=== PATIENT | male | born 1965 | race Caucasian/White ===

== ENCOUNTER 2019-01-03 11:20 | Inpatient (IN) | payer SELFPAY ==
[~2019-01-03] VITALS: Ht 160 cm; Wt 59.0 kg
[2019-01-03] MEDS ORDERED: ONDANSETRON PF 4 MG/2 ML VIAL. IV ONE (11:30)
[2019-01-03] MEDS ORDERED: fentaNYL PF VIAL 100 MCG/2 ML VIAL IV ONE ×3 (11:30→14:00)
[2019-01-03] MEDS ORDERED: HYDROmorphone 2 MG/ML VIAL IV ONE (12:00)
--- NOTE | 2019-01-03 12:25 | PHYS DOC ---
Past Medical History Past Medical History: No Pertinent History Past Surgical History: No Surgical History Alcohol Use: Occasionally Drug Use: None Adult General Chief Complaint Chief Complaint: HIP PAIN HPI HPI Patient is a 53-year-old male who presents with complaint of severe right hip pain after slipping on ice and falling onto right hip. Patient denies any head injury and has no head or neck pain. He rates pain in his right hip at a 9 out of 10. He states the pain is worsened with any motion of the hip. Patient denies any significant medical history and takes no medications. Review of Systems Review of Systems Constitutional: Denies fever or chills [] Respiratory: Denies cough or shortness of breath [] Cardiovascular: No additional information not addressed in HPI [] GI: Denies abdominal pain, nausea, vomiting or diarrhea [] Musculoskeletal: Complains of right hip pain [] Integument: Denies rash or skin lesions [] Neurologic: Denies headache, focal weakness or sensory changes [] All other systems were reviewed and found to be within normal limits, except as documented in this note. Current Medications Current Medications Current Medications Medications (Trade) Dose Ordered Sig/Chyna Start Time Stop Time Status Last Admin Dose Admin Fentanyl Citrate (Fentanyl 2ml Vial) 75 mcg 1X ONCE 01/03/19 12:00 01/03/19 12:01 DC 01/03/19 11:45 75 MCG Hydromorphone HCl (Dilaudid) 1 mg 1X ONCE 01/03/19 12:00 01/03/19 12:03 DC 01/03/19 12:01 1 MG Ondansetron HCl (Zofran) 4 mg 1X ONCE 01/03/19 11:30 01/03/19 11:31 DC 01/03/19 11:37 4 MG Allergies Allergies Allergies Coded Allergies Type Severity Reaction Last Updated Verified No Known Drug Allergies 01/03/19 No Physical Exam Physical Exam Constitutional: Well developed, well nourished, in mild distress, non-toxic appearance. [] HENT: Normocephalic, atraumatic, bilateral external ears normal, oropharynx moist, no oral exudates, nose normal. [] Eyes: PERRLA, EOMI, conjunctiva normal, no discharge. [] Neck: Normal range of motion, no tenderness, supple, no stridor. [] Cardiovascular: Regular rate and rhythm [] Lungs & Thorax: Bilateral breath sounds clear to auscultation [] Abdomen: Bowel sounds normal, soft, no tenderness. [] Skin: Warm, dry, no erythema, no rash. [] Extremities: No cyanosis, no clubbing, no edema. Unable to assess range of motion of right hip due to pain. Patient in position of comfort. [] Neurologic: Alert and oriented X 3, no focal deficits noted. [] Current Patient Data Vital Signs Vital Signs Date Time Temp Pulse Resp B/P (MAP) Pulse Ox O2 Delivery O2 Flow Rate FiO2 01/03/19 13:20 77 18 109/57 (74) 97 01/03/19 11:31 Room Air 01/03/19 11:20 98.4 98.4 Lab Values Laboratory Tests Test 01/03/19 12:30 White Blood Count 13.5 x10^3/uL (4.0-11.0) H Red Blood Count 4.65 x10^6/uL (4.30-5.70) Hemoglobin 15.0 g/dL (13.0-17.5) Hematocrit 45.2 % (39.0-53.0) Mean Corpuscular Volume 97 fL (79-100) Mean Corpuscular Hemoglobin 32 pg (25-35) Mean Corpuscular Hemoglobin Concent 33 g/dL (31-37) Red Cell Distribution Width 13.6 % (11.5-14.5) Platelet Count 361 x10^3/uL (140-400) Neutrophils (%) (Auto) 82 % (31-73) H Lymphocytes (%) (Auto) 13 % (24-48) L Monocytes (%) (Auto) 4 % (0-9) Eosinophils (%) (Auto) 1 % (0-3) Basophils (%) (Auto) 1 % (0-3) Neutrophils # (Auto) 11.0 x10^3uL (1.8-7.7) H Lymphocytes # (Auto) 1.8 x10^3/uL (1.0-4.8) Monocytes # (Auto) 0.5 x10^3/uL (0.0-1.1) Eosinophils # (Auto) 0.1 x10^3/uL (0.0-0.7) Basophils # (Auto) 0.1 x10^3/uL (0.0-0.2) Sodium Level 141 mmol/L (136-145) Potassium Level 4.3 mmol/L (3.5-5.1) Chloride Level 103 mmol/L (98-107) Carbon Dioxide Level 28 mmol/L (21-32) Anion Gap 10 (6-14) Blood Urea Nitrogen 10 mg/dL (8-26) Creatinine 0.8 mg/dL (0.7-1.3) Estimated GFR (Cockcroft-Gault) 100.4 BUN/Creatinine Ratio 13 (6-20) Glucose Level 93 mg/dL (70-99) Calcium Level 9.2 mg/dL (8.5-10.1) Total Bilirubin 0.4 mg/dL (0.2-1.0) Aspartate Amino Transferase (AST) 19 U/L (15-37) Alanine Aminotransferase (ALT) 24 U/L (16-63) Alkaline Phosphatase 64 U/L (46-116) Total Protein 7.6 g/dL (6.4-8.2) Albumin 3.9 g/dL (3.4-5.0) Albumin/Globulin Ratio 1.1 (1.0-1.7) Laboratory Tests 01/03/19 12:30 Laboratory Tests 01/03/19 12:30 EKG EKG [] Radiology/Procedures Radiology/Procedures [] Impressions: Right femur, 2 views, 01/03/2019: HISTORY: Fall The patient positioning was suboptimal. There is a fracture of the proximal right femur extending from the intertrochanteric region into the subtrochanteric femur. There is mild medial displacement of the major distal fracture fragment. There is mild anterior angulation at the fracture site. The femoral head is seated within the acetabulum. There are mild degenerative changes at the right hip joint. No distal femoral fracture is identified. IMPRESSION: Mildly displaced proximal right femoral fracture. Electronically signed by: Chau Little MD (01/03/2019 12:53 PM) [facility] Course & Med Decision Making Course & Med Decision Making Pertinent Labs and Imaging studies reviewed. (See chart for details) [] Dragon Disclaimer Dragon Disclaimer This electronic medical record was generated, in whole or in part, using a voice recognition dictation system. Departure Departure Impression: Primary Impression: Closed right hip fracture Disposition: 09 ADMITTED INPATIENT Admitting Physician: Other (Dr. Hunter) Condition: IMPROVED (ERASED) Referrals: UNKNOWN PCP NAME (PCP) Problem Qualifiers Primary Impression: Closed right hip fracture Encounter type: initial encounter Qualified Codes: S72.001A - Fracture of unspecified part of neck of right femur, initial encounter for closed fracture ANA ROBLES Jr., DO Jan 03, 2019 12:25
[2019-01-03 12:45] LABS: BASO # 0.1 x10^3/uL (0.0-0.2); BASO % 1 % (0-3); EOS # 0.1 x10^3/uL (0.0-0.7); EOS % 1 % (0-3); HEMATOCRIT 45.2 % (39.0-53.0); LYMPH # 1.8 x10^3/uL (1.0-4.8); LYMPH % 13 % (24-48); MEAN CORPUSCULAR HEMOGLOBIN 32 pg (25-35); MEAN CORPUSCULAR HGB CONC 33 g/dL (31-37); MEAN CORPUSCULAR VOLUME 97 fL (79-100); MONO # 0.5 x10^3/uL (0.0-1.1); MONO % 4 % (0-9); NEUT % 82 % (31-73); PLATELET COUNT 361 x10^3/uL (140-400); RED BLOOD COUNT 4.65 x10^6/uL (4.30-5.70); RED CELL DISTRIBUTION WIDTH 13.6 % (11.5-14.5); WHITE BLOOD COUNT 13.5 x10^3/uL (4.0-11.0)
--- NOTE | 2019-01-03 12:56 | RAD ---
Right femur, 2 views, 01/03/2019: HISTORY: Fall The patient positioning was suboptimal. There is a fracture of the proximal right femur extending from the intertrochanteric region into the subtrochanteric femur. There is mild medial displacement of the major distal fracture fragment. There is mild anterior angulation at the fracture site. The femoral head is seated within the acetabulum. There are mild degenerative changes at the right hip joint. No distal femoral fracture is identified. IMPRESSION: Mildly displaced proximal right femoral fracture. Electronically signed by: Chau Little MD (01/03/2019 12:53 PM) [facility]
[2019-01-03 12:59] LABS: CALCIUM 9.2 mg/dL (8.5-10.1); CREATININE 0.8 mg/dL (0.7-1.3); GFR 100.4; POTASSIUM 4.3 mmol/L (3.5-5.1)
[2019-01-03 13:05] LABS: ALBUMIN 3.9 g/dL (3.4-5.0); ALBUMIN/GLOBULIN RATIO 1.1 (1.0-1.7); TOTAL BILIRUBIN 0.4 mg/dL (0.2-1.0); TOTAL PROTEIN 7.6 g/dL (6.4-8.2)
[2019-01-03] MEDS ORDERED: fentaNYL PF VIAL 100 MCG/2 ML VIAL IV PRN (13:45)
[2019-01-03] MEDS ORDERED: ONDANSETRON PF 4 MG/2 ML VIAL. IV PRN ×2 (13:45→15:00)
--- NOTE | 2019-01-03 13:52 | PDOC1 ---
History and Physical Date of Admission Date of Admission DATE: 01/03/19 TIME: 13:49 Identification/Chief Complaint Chief Complaint Traumatic fall with right hip fracture Source Source: Patient History of Present Illness History of Present Illness 53 yo M w/ no known PMHx who presents with complaint of severe right hip pain after slipping on ice and falling onto right hip. Patient denies any head injury and has no head or neck pain. He rates pain in his right hip at a 9 out of 10. He states the pain is worsened with any motion of the hip. Found on XR - Mildly displaced proximal right femoral fracture. Patient denies any significant medical history and takes no medications. Current Problem List Problem List Problems Medical Problems: (1) Closed right hip fracture Status: Acute Current Medications Current Medications Current Medications Fentanyl Citrate (Fentanyl 2ml Vial) 75 mcg 1X ONCE IV Last administered on at 11:31; Start 01/03/19 at 11:30; Stop 01/03/19 at 11:31; Status DC Ondansetron HCl (Zofran) 4 mg 1X ONCE IV Last administered on 01/03/19at 11:37 ; Start 01/03/19 at 11:30; Stop 01/03/19 at 11:31; Status DC Fentanyl Citrate (Fentanyl 2ml Vial) 75 mcg 1X ONCE IV Last administered on at 11:45; Start 01/03/19 at 12:00; Stop 01/03/19 at 12:01; Status DC Hydromorphone HCl (Dilaudid) 1 mg 1X ONCE IV Last administered on 01/03/19at 12 :01; Start 01/03/19 at 12:00; Stop 01/03/19 at 12:03; Status DC Fentanyl Citrate (Fentanyl 2ml Vial) 50 mcg 1X ONCE IV ; Start 01/03/19 at 14: 00; Stop 01/03/19 at 14:01 Ondansetron HCl (Zofran) 4 mg PRN Q8HRS PRN IV NAUSEA/VOMITING; Start 01/03/19 at 13:45; Stop 01/04/19 at 13:44 Fentanyl Citrate (Fentanyl 2ml Vial) 50 mcg PRN Q1HR PRN IV PAIN; Start at 13:45; Stop 01/04/19 at 13:44 Sodium Chloride 1,000 ml @ 125 mls/hr Q8H IV ; Start 01/03/19 at 13:39; Stop at 13:38 Allergies Allergies: Coded Allergies: No Known Drug Allergies (Unverified , 01/03/19) Vitals Vitals Vital Signs Date Time Temp Pulse Resp B/P (MAP) Pulse Ox O2 Delivery O2 Flow Rate FiO2 01/03/19 13:20 77 18 109/57 (74) 97 01/03/19 11:31 Room Air 01/03/19 11:20 98.4 98.4 Labs Labs Laboratory Tests Test 01/03/19 12:30 White Blood Count 13.5 x10^3/uL (4.0-11.0) Red Blood Count 4.65 x10^6/uL (4.30-5.70) Hemoglobin 15.0 g/dL (13.0-17.5) Hematocrit 45.2 % (39.0-53.0) Mean Corpuscular Volume 97 fL (79-100) Mean Corpuscular Hemoglobin 32 pg (25-35) Mean Corpuscular Hemoglobin Concent 33 g/dL (31-37) Red Cell Distribution Width 13.6 % (11.5-14.5) Platelet Count 361 x10^3/uL (140-400) Neutrophils (%) (Auto) 82 % (31-73) Lymphocytes (%) (Auto) 13 % (24-48) Monocytes (%) (Auto) 4 % (0-9) Eosinophils (%) (Auto) 1 % (0-3) Basophils (%) (Auto) 1 % (0-3) Neutrophils # (Auto) 11.0 x10^3uL (1.8-7.7) Lymphocytes # (Auto) 1.8 x10^3/uL (1.0-4.8) Monocytes # (Auto) 0.5 x10^3/uL (0.0-1.1) Eosinophils # (Auto) 0.1 x10^3/uL (0.0-0.7) Basophils # (Auto) 0.1 x10^3/uL (0.0-0.2) Sodium Level 141 mmol/L (136-145) Potassium Level 4.3 mmol/L (3.5-5.1) Chloride Level 103 mmol/L (98-107) Carbon Dioxide Level 28 mmol/L (21-32) Anion Gap 10 (6-14) Blood Urea Nitrogen 10 mg/dL (8-26) Creatinine 0.8 mg/dL (0.7-1.3) Estimated GFR (Cockcroft-Gault) 100.4 BUN/Creatinine Ratio 13 (6-20) Glucose Level 93 mg/dL (70-99) Calcium Level 9.2 mg/dL (8.5-10.1) Total Bilirubin 0.4 mg/dL (0.2-1.0) Aspartate Amino Transf (AST/SGOT) 19 U/L (15-37) Alanine Aminotransferase (ALT/SGPT) 24 U/L (16-63) Alkaline Phosphatase 64 U/L (46-116) Total Protein 7.6 g/dL (6.4-8.2) Albumin 3.9 g/dL (3.4-5.0) Albumin/Globulin Ratio 1.1 (1.0-1.7) Laboratory Tests Test 01/03/19 12:30 White Blood Count 13.5 x10^3/uL (4.0-11.0) Red Blood Count 4.65 x10^6/uL (4.30-5.70) Hemoglobin 15.0 g/dL (13.0-17.5) Hematocrit 45.2 % (39.0-53.0) Mean Corpuscular Volume 97 fL (79-100) Mean Corpuscular Hemoglobin 32 pg (25-35) Mean Corpuscular Hemoglobin Concent 33 g/dL (31-37) Red Cell Distribution Width 13.6 % (11.5-14.5) Platelet Count 361 x10^3/uL (140-400) Neutrophils (%) (Auto) 82 % (31-73) Lymphocytes (%) (Auto) 13 % (24-48) Monocytes (%) (Auto) 4 % (0-9) Eosinophils (%) (Auto) 1 % (0-3) Basophils (%) (Auto) 1 % (0-3) Neutrophils # (Auto) 11.0 x10^3uL (1.8-7.7) Lymphocytes # (Auto) 1.8 x10^3/uL (1.0-4.8) Monocytes # (Auto) 0.5 x10^3/uL (0.0-1.1) Eosinophils # (Auto) 0.1 x10^3/uL (0.0-0.7) Basophils # (Auto) 0.1 x10^3/uL (0.0-0.2) Sodium Level 141 mmol/L (136-145) Potassium Level 4.3 mmol/L (3.5-5.1) Chloride Level 103 mmol/L (98-107) Carbon Dioxide Level 28 mmol/L (21-32) Anion Gap 10 (6-14) Blood Urea Nitrogen 10 mg/dL (8-26) Creatinine 0.8 mg/dL (0.7-1.3) Estimated GFR (Cockcroft-Gault) 100.4 BUN/Creatinine Ratio 13 (6-20) Glucose Level 93 mg/dL (70-99) Calcium Level 9.2 mg/dL (8.5-10.1) Total Bilirubin 0.4 mg/dL (0.2-1.0) Aspartate Amino Transf (AST/SGOT) 19 U/L (15-37) Alanine Aminotransferase (ALT/SGPT) 24 U/L (16-63) Alkaline Phosphatase 64 U/L (46-116) Total Protein 7.6 g/dL (6.4-8.2) Albumin 3.9 g/dL (3.4-5.0) Albumin/Globulin Ratio 1.1 (1.0-1.7) Images Images Right hip XR - Mildly displaced proximal right femoral fracture. VTE Prophylaxis Ordered VTE Prophylaxis Devices: Yes VTE Pharmacological Prophylaxi: No Assessment/Plan Assessment/Plan A/P: Right hip fracture - traumatic, ortho consulted. NPO, pain control. Low cardiac risk for low risk surgery based on EKG, no PMHx. No further testing prior to OR. Would still recommend thromboprophylaxis post-op FEN - NPO PPX - SCDs, lovenox post-op FULL CODE Inpatient for traumatic hip fracture, will need rehab likely on D/C, will notify SW will be inpatient likely at least 2 midnights DEBRA ESTEVEZ MD Jan 03, 2019 13:52
[2019-01-03] MEDS: IV RINGERS,LACTATED 1000ML 1,000 ML IV SCH (14:59)
[2019-01-03 15:00] VITALS: BP 101/55
[2019-01-03] MEDS ORDERED: ACETAMINOPHEN 325 MG TABLET. PO PRN (15:00)
[2019-01-03] MEDS ORDERED: HYDROmorphone 2 MG/ML VIAL IV PRN (15:00)
[2019-01-03] MEDS ORDERED: MAGNESIUM HYDROXIDE 2,400 MG/30 ML ORAL.SUSP. PO PRN (15:00)
[2019-01-03] MEDS ORDERED: LIDOCAINE 2% JELLY 6ML IN APPLICATOR. MM ONE (15:30)
--- NOTE | 2019-01-03 15:41 | NUR ---
Pt arrived at 1500, from ER. Transferred by bed. Pt is on left side, states he cannot move leg. on Hip precautions bedrest, npo at midnight. Pt will be having surgery tomorrow AM with Dr. Kerr.
[2019-01-03] MEDS: HYDROmorphone 2 MG/ML VIAL IV PRN ×3 (16:00→22:43)
--- NOTE | 2019-01-03 16:34 | PDOC2 ---
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 He has had hip pain since then. He is unable to walk. He denies hitting his head or loss of consciousness. Past Medical History Past Medical History He had a severe episode of Chloride spotted fever in 2000. He was in the hospital for a month. He was unable to walk initially, and had to catheterize himself. He progressed from a wheelchair, back to crutches and eventually learned to walk again. He denied other hospitalizations or surgeries or illnesses Past Surgical History Past Surgical History: No pertinent history Family History Family History His mother had cancer, I suspect this was breast cancer primary that spread to the lung and brain or possible lung primary Social History Social History He lives alone in an apartment in [place]. 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 He said he has smoked cigarettes since elementary school. He smokes 1 or more packs a day, he said he would prefer to smoke 2 packs a day. He uses alcohol during his one week off a month. He does not currently use recreational drugs, he reports cocaine use remotely 1 pack per day ALCOHOL: occassional Drugs: None Lives: Alone Current Problem List Problem List Problems Medical Problems: (1) Closed right hip fracture Status: Acute Current Medications Current Medications Current Medications Fentanyl Citrate (Fentanyl 2ml Vial) 75 mcg 1X ONCE IV Last administered on at 11:31; Start 01/03/19 at 11:30; Stop 01/03/19 at 11:31; Status DC Ondansetron HCl (Zofran) 4 mg 1X ONCE IV Last administered on 01/03/19at 11:37 ; Start 01/03/19 at 11:30; Stop 01/03/19 at 11:31; Status DC Fentanyl Citrate (Fentanyl 2ml Vial) 75 mcg 1X ONCE IV Last administered on at 11:45; Start 01/03/19 at 12:00; Stop 01/03/19 at 12:01; Status DC Hydromorphone HCl (Dilaudid) 1 mg 1X ONCE IV Last administered on 01/03/19at 12 :01; Start 01/03/19 at 12:00; Stop 01/03/19 at 12:03; Status DC Fentanyl Citrate (Fentanyl 2ml Vial) 50 mcg 1X ONCE IV Last administered on at 14:26; Start 01/03/19 at 14:00; Stop 01/03/19 at 14:01; Status DC Ondansetron HCl (Zofran) 4 mg PRN Q8HRS PRN IV NAUSEA/VOMITING; Start 01/03/19 at 13:45; Stop 01/03/19 at 15:05; Status DC Fentanyl Citrate (Fentanyl 2ml Vial) 50 mcg PRN Q1HR PRN IV PAIN; Start at 13:45; Stop 01/04/19 at 13:44 Sodium Chloride 1,000 ml @ 125 mls/hr Q8H IV ; Start 01/03/19 at 13:39; Stop at 13:38 Ringer's Solution 1,000 ml @ 50 mls/hr Q20H IV ; Start 01/03/19 at 14:59 Ondansetron HCl (Zofran) 4 mg PRN Q6HRS PRN IV NAUSEA/VOMITING; Start 01/03/19 at 15:00 Hydromorphone HCl (Dilaudid) 0.5 mg PRN Q3HRS PRN IV PAIN; Start 01/03/19 at 15 :00 Hydromorphone HCl (Dilaudid) 1 mg PRN Q3HRS PRN IV PAIN; Start 01/03/19 at 15: 00 Acetaminophen/ Hydrocodone Bitart (Lortab 5/325) 1 tab PRN Q4HRS PRN PO MILD PAIN; Start 01/03/19 at 15:00 Acetaminophen (Tylenol) 650 mg PRN Q6HRS PRN PO Headaches, Temp > 101.5F; Start 01/03/19 at 15:00 Senna/Docusate Sodium (Senna Plus) 1 tab BID PO ; Start 01/03/19 at 21:00 Magnesium Hydroxide (Milk Of Magnesia) 2,400 mg PRN Q12HR PRN PO CONSTIPATION; Start 01/03/19 at 15:00 Nicotine (Nicoderm Cq 21mg) 1 patch DAILY TD ; Start 01/03/19 at 15:00 Lidocaine HCl (Glydo (Lidocaine) Jelly) 1 stephen 1X ONCE MM ; Start 01/03/19 at 15 :30; Stop 01/03/19 at 15:32; Status DC Ondansetron HCl (Zofran) 4 mg PRN Q6HRS PRN IV NAUSEA/VOMITING; Start 01/04/19 at 07:00; Stop 01/05/19 at 06:59 Fentanyl Citrate (Fentanyl 2ml Vial) 25 mcg PRN Q5MIN PRN IV MILD PAIN; Start 01/04/19 at 07:00; Stop 01/05/19 at 06:59 Fentanyl Citrate (Fentanyl 2ml Vial) 50 mcg PRN Q5MIN PRN IV MODERATE TO SEVERE PAIN; Start 01/04/19 at 07:00; Stop 01/05/19 at 06:59 Morphine Sulfate (Morphine Sulfate) 1 mg PRN Q10MIN PRN IV SEVERE PAIN; Start 01/04/19 at 07:00; Stop 01/05/19 at 06:59 Ringer's Solution 1,000 ml @ 30 mls/hr Q24H IV ; Start 01/04/19 at 07:00; Stop 01/04/19 at 18:59 Lidocaine HCl (Xylocaine-Mpf 1% 2ml Vial) 2 ml PRN 1X PRN ID IV START; Start at 07:00; Stop 01/05/19 at 06:59 Hydromorphone HCl (Dilaudid) 0.5 mg PRN Q10MIN PRN IV SEV PAIN, Second choice; Start 01/04/19 at 07:00; Stop 01/05/19 at 06:59 Prochlorperazine Edisylate (Compazine) 5 mg PACU PRN PRN IV NAUSEA, MRX1; Start 01/04/19 at 07:00; Stop 01/05/19 at 06:59 Allergies Allergies: Coded Allergies: No Known Drug Allergies (Unverified , 01/03/19) ROS General: No: Chills, Night Sweats, Fatigue, Malaise Eyes: No Blurry vision, No Double vision HEENT: No: Heacaches Respiratory: No: Cough, Pleuritic Pain, Shortness of breath, SOB with excertion Cardiovascular: No Chest Pain Gastrointestinal: No Nausea, No Vomiting, No Diarrhea, No Constipation Genitourinary: No Dysuria, No Hematuria Musculoskeletal: Yes Gait Disturbance, Yes Joint Pain Neurological: No Bowel/Bladder ControlChng, No Headaches, No Numbness/Tingling Physical Exam General: Alert, Cooperative HEENT: Atraumatic, Other (poor dentition, no apparent loose teeth) Lungs: Normal air movement Heart: Regular rate Abdomen: Soft Extremities: No edema, Normal pulses Skin: No significant lesion, Other (skin intact over the fracture) Neuro: Normal speech, Sensation intact, Other (he was able to dorsiflex and plantarflex the foot on the right, with no evidence of sciatic nerve injury) Psych/Mental Status: Mental status NL, Mood NL MUSCULOSKELETAL: Abnormal exam of right (hip as above. The other 3 extremities show no deformity, tenderness, crepitus, instability, malalignment, weakness, or numbness.) Vitals VITALS Vital Signs Date Time Temp Pulse Resp B/P (MAP) Pulse Ox O2 Delivery O2 Flow Rate FiO2 01/03/19 15:00 99.0 71 20 101/55 (70) 96 Room Air 99.0 Labs Labs Laboratory Tests Test 01/03/19 12:30 White Blood Count 13.5 x10^3/uL (4.0-11.0) Red Blood Count 4.65 x10^6/uL (4.30-5.70) Hemoglobin 15.0 g/dL (13.0-17.5) Hematocrit 45.2 % (39.0-53.0) Mean Corpuscular Volume 97 fL (79-100) Mean Corpuscular Hemoglobin 32 pg (25-35) Mean Corpuscular Hemoglobin Concent 33 g/dL (31-37) Red Cell Distribution Width 13.6 % (11.5-14.5) Platelet Count 361 x10^3/uL (140-400) Neutrophils (%) (Auto) 82 % (31-73) Lymphocytes (%) (Auto) 13 % (24-48) Monocytes (%) (Auto) 4 % (0-9) Eosinophils (%) (Auto) 1 % (0-3) Basophils (%) (Auto) 1 % (0-3) Neutrophils # (Auto) 11.0 x10^3uL (1.8-7.7) Lymphocytes # (Auto) 1.8 x10^3/uL (1.0-4.8) Monocytes # (Auto) 0.5 x10^3/uL (0.0-1.1) Eosinophils # (Auto) 0.1 x10^3/uL (0.0-0.7) Basophils # (Auto) 0.1 x10^3/uL (0.0-0.2) Sodium Level 141 mmol/L (136-145) Potassium Level 4.3 mmol/L (3.5-5.1) Chloride Level 103 mmol/L (98-107) Carbon Dioxide Level 28 mmol/L (21-32) Anion Gap 10 (6-14) Blood Urea Nitrogen 10 mg/dL (8-26) Creatinine 0.8 mg/dL (0.7-1.3) Estimated GFR (Cockcroft-Gault) 100.4 BUN/Creatinine Ratio 13 (6-20) Glucose Level 93 mg/dL (70-99) Calcium Level 9.2 mg/dL (8.5-10.1) Total Bilirubin 0.4 mg/dL (0.2-1.0) Aspartate Amino Transf (AST/SGOT) 19 U/L (15-37) Alanine Aminotransferase (ALT/SGPT) 24 U/L (16-63) Alkaline Phosphatase 64 U/L (46-116) Total Protein 7.6 g/dL (6.4-8.2) Albumin 3.9 g/dL (3.4-5.0) Albumin/Globulin Ratio 1.1 (1.0-1.7) Laboratory Tests Test 01/03/19 12:30 White Blood Count 13.5 x10^3/uL (4.0-11.0) Red Blood Count 4.65 x10^6/uL (4.30-5.70) Hemoglobin 15.0 g/dL (13.0-17.5) Hematocrit 45.2 % (39.0-53.0) Mean Corpuscular Volume 97 fL (79-100) Mean Corpuscular Hemoglobin 32 pg (25-35) Mean Corpuscular Hemoglobin Concent 33 g/dL (31-37) Red Cell Distribution Width 13.6 % (11.5-14.5) Platelet Count 361 x10^3/uL (140-400) Neutrophils (%) (Auto) 82 % (31-73) Lymphocytes (%) (Auto) 13 % (24-48) Monocytes (%) (Auto) 4 % (0-9) Eosinophils (%) (Auto) 1 % (0-3) Basophils (%) (Auto) 1 % (0-3) Neutrophils # (Auto) 11.0 x10^3uL (1.8-7.7) Lymphocytes # (Auto) 1.8 x10^3/uL (1.0-4.8) Monocytes # (Auto) 0.5 x10^3/uL (0.0-1.1) Eosinophils # (Auto) 0.1 x10^3/uL (0.0-0.7) Basophils # (Auto) 0.1 x10^3/uL (0.0-0.2) Sodium Level 141 mmol/L (136-145) Potassium Level 4.3 mmol/L (3.5-5.1) Chloride Level 103 mmol/L (98-107) Carbon Dioxide Level 28 mmol/L (21-32) Anion Gap 10 (6-14) Blood Urea Nitrogen 10 mg/dL (8-26) Creatinine 0.8 mg/dL (0.7-1.3) Estimated GFR (Cockcroft-Gault) 100.4 BUN/Creatinine Ratio 13 (6-20) Glucose Level 93 mg/dL (70-99) Calcium Level 9.2 mg/dL (8.5-10.1) Total Bilirubin 0.4 mg/dL (0.2-1.0) Aspartate Amino Transf (AST/SGOT) 19 U/L (15-37) Alanine Aminotransferase (ALT/SGPT) 24 U/L (16-63) Alkaline Phosphatase 64 U/L (46-116) Total Protein 7.6 g/dL (6.4-8.2) Albumin 3.9 g/dL (3.4-5.0) Albumin/Globulin Ratio 1.1 (1.0-1.7) Images Images Report reviewed, images independently reviewed. Right hip, closed comminuted proximal femur fracture, with reverse obliquity, large lateral fragment, and a fracture line enters the piriformis fossa,with possible separate lesser trochanter fragment. AO class A3.2 or more likely A3.3, and also classified as Seinsheimer V. Assessment/Plan Assessment/Plan Right hip, closed comminuted proximal femur fracture, with reverse obliquity, large lateral fragment, and a fracture line enters the piriformis fossa,with possible separate lesser trochanter fragment. AO class A3.2 or more likely A3.3 , and also classified as Seinsheimer V. This is a difficult fracture to manage, and I spoke to him about risks and benefits of treatment. Nonoperative treatment with bedrest is not recommended. I recommended surgical fixation with cables and intramedullary nail. The nonmetallic polymer cables are stronger than metal cables and have less risk of metal debris and less likely to puncture gloves etc. The fracture pattern alone has a high risk of nonunion or malunion, and his long-term smoking raises the risk of infection, nonunion, or other complications. I spoke to her about the potential risks of surgery such as nonunion or malunion, need for further surgery, hardware breakage, blood clots, bleeding, nerve injury, prolonged healing, or other potential surgical or anesthetic complications. I advised him to stop smoking. I will order a nicotine patch to help his tobacco withdrawal symptoms. I spoke to him about how that smoking affects the healing and increases the risks of difficulties. Showed him images from the Internet of broken nails due to nonunions, and of frequent malaligned fractures with this injury pattern. All of his questions about surgery and answered and he desires to proceed. I have ordered the [employer] Supercables and the Samantha intramedullary nail, but the cables will not be available until about 10 PM and so I recommended surgery at 7:30 AM. He may eat today. ANIL OCONNOR MD Jan 03, 2019 16:34
[2019-01-03] MEDS: NICOTINE 21MG PATCH. TD SCH (16:58)
[2019-01-03] MEDS: HYDROcodone/APAP 5/325MG 1 TAB TABLET PO PRN ×2 (16:58→21:17)
[2019-01-03] MEDS: IV NORMAL SALINE 1000ML BAG 1,000 ML IV SCH (17:01)
[2019-01-03 19:00] VITALS: BP 88/55
[2019-01-03] MEDS: SENNOSIDES/DOCUSATE 8.6/50MG TABLET. PO SCH (21:00)
[2019-01-03 22:00] VITALS: BP 97/57
[2019-01-04] VITALS (17 sets, daily range): BP systolic 91–124; BP diastolic 51–72
[2019-01-04] MEDS: HYDROcodone/APAP 5/325MG 1 TAB TABLET PO PRN (01:46)
[2019-01-04] MEDS: IV NORMAL SALINE 1000ML BAG 1,000 ML IV SCH ×2 (01:47→05:39)
[2019-01-04] MEDS: HYDROmorphone 2 MG/ML VIAL IV PRN ×6 (03:08→22:20)
[2019-01-04 03:58] LABS: BASO % 0 % (0-3); EOS # 0.3 x10^3/uL (0.0-0.7); EOS % 4 % (0-3); HEMATOCRIT 38.4 % (39.0-53.0); HEMOGLOBIN 12.8 g/dL (13.0-17.5); LYMPH # 2.7 x10^3/uL (1.0-4.8); LYMPH % 30 % (24-48); MEAN CORPUSCULAR HEMOGLOBIN 33 pg (25-35); MEAN CORPUSCULAR HGB CONC 33 g/dL (31-37); MEAN CORPUSCULAR VOLUME 98 fL (79-100); MONO % 11 % (0-9); NEUT # 4.9 x10^3uL (1.8-7.7); NEUT % 55 % (31-73); PLATELET COUNT 326 x10^3/uL (140-400); RED BLOOD COUNT 3.94 x10^6/uL (4.30-5.70); RED CELL DISTRIBUTION WIDTH 13.8 % (11.5-14.5); WHITE BLOOD COUNT 8.9 x10^3/uL (4.0-11.0)
[2019-01-04 04:17] LABS: CALCIUM 8.4 mg/dL (8.5-10.1); CREATININE 0.9 mg/dL (0.7-1.3); GFR 87.6
[2019-01-04] MEDS ORDERED: DEXAMETHASONE SOD PHOS 20 MG/5 ML VIAL. ONE ×2 (06:56→17:34)
[2019-01-04] MEDS ORDERED: ROCURONIUM 50 MG/5 ML VIAL. ONE ×2 (06:56→16:37)
[2019-01-04] MEDS ORDERED: fentaNYL PF VIAL 100 MCG/2 ML VIAL ONE ×2 (06:56→16:37)
[2019-01-04] MEDS ORDERED: MIDAZOLAM HCL/PF 2 MG/2 ML VIAL. ONE (06:56)
[2019-01-04] MEDS ORDERED: FAMOTIDINE 20 MG/2 ML VIAL ONE (06:56)
[2019-01-04] MEDS ORDERED: PROPOFOL 0 ML IV ONE (06:56)
[2019-01-04] MEDS ORDERED: ONDANSETRON PF 4 MG/2 ML VIAL. ONE (06:56)
[2019-01-04] MEDS ORDERED: LIDOCAINE 2% PF 5 ML VIAL. ONE ×3 (06:56→16:37)
[2019-01-04] MEDS ORDERED: PROCHLORPERAZINE 10 MG/2 ML VIAL. IV PRN (07:00)
[2019-01-04] MEDS ORDERED: HYDROmorphone 2 MG/ML VIAL IV PRN (07:00)
[2019-01-04] MEDS ORDERED: IV RINGERS,LACTATED 1000ML 1,000 ML IV SCH (07:00)
[2019-01-04] MEDS ORDERED: ONDANSETRON PF 4 MG/2 ML VIAL. IV PRN ×2 (07:00→20:45)
[2019-01-04] MEDS ORDERED: MORPHINE SULFATE 4 MG/ML VIAL. IV PRN (07:00)
[2019-01-04] MEDS ORDERED: fentaNYL PF VIAL 100 MCG/2 ML VIAL IV PRN ×3 (07:00→20:45)
[2019-01-04] MEDS ORDERED: LIDOCAINE 1% PF 2 ML VIAL. ID PRN (07:00)
--- NOTE | 2019-01-04 07:25 | EKG ---
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
[2019-01-04] MEDS ORDERED: MORPHINE SULFATE 5 MG, KETOROLAC 30MG VIAL 30 MG, ROPIVacaine 0.5% PF 60 ML, EPINEPHrin... INT ART ONE ×10 (08:00→16:45)
--- NOTE | 2019-01-04 08:01 | PDOC ---
Provider Note Provider Note instruments were not sterile, so case was postponed. Patient was in OR, but not asleep, so case will be delayed until later today. Instruments to be sterilized. ANIL OCONNOR MD Jan 04, 2019 08:01
[2019-01-04] MEDS: SENNOSIDES/DOCUSATE 8.6/50MG TABLET. PO SCH ×2 (09:07→21:00)
[2019-01-04] MEDS: NICOTINE 21MG PATCH. TD SCH (09:07)
--- NOTE | 2019-01-04 09:26 | PDOC ---
PROGRESS NOTES Chief Complaint Chief Complaint Right hip fracture - traumatic, ortho consulted. NPO, pain control traumatic hip fracture, will need rehab likely on D/C, History of Present Illness History of Present Illness pain OK while not moving he doesnt want to take stool softener, he doesnt want to use the bedpan Vitals Vitals Vital Signs Date Time Temp Pulse Resp B/P (MAP) Pulse Ox O2 Delivery O2 Flow Rate FiO2 01/04/19 08:51 16 Room Air 01/04/19 06:42 98.1 68 117/64 100 98.1 Physical Exam General: Alert, Cooperative Heart: Regular rate Abdomen: Soft Extremities: No edema, Normal pulses Skin: No significant lesion, Other (skin intact over the fracture) Labs LABS Laboratory Tests Test 01/03/19 12:30 01/04/19 03:05 White Blood Count 13.5 x10^3/uL (4.0-11.0) 8.9 x10^3/uL (4.0-11.0) Red Blood Count 4.65 x10^6/uL (4.30-5.70) 3.94 x10^6/uL (4.30-5.70) Hemoglobin 15.0 g/dL (13.0-17.5) 12.8 g/dL (13.0-17.5) Hematocrit 45.2 % (39.0-53.0) 38.4 % (39.0-53.0) Mean Corpuscular Volume 97 fL (79-100) 98 fL (79-100) Mean Corpuscular Hemoglobin 32 pg (25-35) 33 pg (25-35) Mean Corpuscular Hemoglobin Concent 33 g/dL (31-37) 33 g/dL (31-37) Red Cell Distribution Width 13.6 % (11.5-14.5) 13.8 % (11.5-14.5) Platelet Count 361 x10^3/uL (140-400) 326 x10^3/uL (140-400) Neutrophils (%) (Auto) 82 % (31-73) 55 % (31-73) Lymphocytes (%) (Auto) 13 % (24-48) 30 % (24-48) Monocytes (%) (Auto) 4 % (0-9) 11 % (0-9) Eosinophils (%) (Auto) 1 % (0-3) 4 % (0-3) Basophils (%) (Auto) 1 % (0-3) 0 % (0-3) Neutrophils # (Auto) 11.0 x10^3uL (1.8-7.7) 4.9 x10^3uL (1.8-7.7) Lymphocytes # (Auto) 1.8 x10^3/uL (1.0-4.8) 2.7 x10^3/uL (1.0-4.8) Monocytes # (Auto) 0.5 x10^3/uL (0.0-1.1) 1.0 x10^3/uL (0.0-1.1) Eosinophils # (Auto) 0.1 x10^3/uL (0.0-0.7) 0.3 x10^3/uL (0.0-0.7) Basophils # (Auto) 0.1 x10^3/uL (0.0-0.2) 0.0 x10^3/uL (0.0-0.2) Sodium Level 141 mmol/L (136-145) 138 mmol/L (136-145) Potassium Level 4.3 mmol/L (3.5-5.1) 4.0 mmol/L (3.5-5.1) Chloride Level 103 mmol/L (98-107) 102 mmol/L (98-107) Carbon Dioxide Level 28 mmol/L (21-32) 27 mmol/L (21-32) Anion Gap 10 (6-14) 9 (6-14) Blood Urea Nitrogen 10 mg/dL (8-26) 13 mg/dL (8-26) Creatinine 0.8 mg/dL (0.7-1.3) 0.9 mg/dL (0.7-1.3) Estimated GFR (Cockcroft-Gault) 100.4 87.6 BUN/Creatinine Ratio 13 (6-20) Glucose Level 93 mg/dL (70-99) 86 mg/dL (70-99) Calcium Level 9.2 mg/dL (8.5-10.1) 8.4 mg/dL (8.5-10.1) Total Bilirubin 0.4 mg/dL (0.2-1.0) Aspartate Amino Transf (AST/SGOT) 19 U/L (15-37) Alanine Aminotransferase (ALT/SGPT) 24 U/L (16-63) Alkaline Phosphatase 64 U/L (46-116) Total Protein 7.6 g/dL (6.4-8.2) Albumin 3.9 g/dL (3.4-5.0) Albumin/Globulin Ratio 1.1 (1.0-1.7) Review of Systems Review of Systems no n.vd. Assessment and Plan Assessmemt and Plan Problems Medical Problems: (1) Closed right hip fracture Status: Acute Comment Review of Relevant I have reviewed the following items anisha (where applicable) has been applied. Labs Laboratory Tests Test 01/03/19 12:30 01/04/19 03:05 White Blood Count 13.5 x10^3/uL (4.0-11.0) 8.9 x10^3/uL (4.0-11.0) Red Blood Count 4.65 x10^6/uL (4.30-5.70) 3.94 x10^6/uL (4.30-5.70) Hemoglobin 15.0 g/dL (13.0-17.5) 12.8 g/dL (13.0-17.5) Hematocrit 45.2 % (39.0-53.0) 38.4 % (39.0-53.0) Mean Corpuscular Volume 97 fL (79-100) 98 fL (79-100) Mean Corpuscular Hemoglobin 32 pg (25-35) 33 pg (25-35) Mean Corpuscular Hemoglobin Concent 33 g/dL (31-37) 33 g/dL (31-37) Red Cell Distribution Width 13.6 % (11.5-14.5) 13.8 % (11.5-14.5) Platelet Count 361 x10^3/uL (140-400) 326 x10^3/uL (140-400) Neutrophils (%) (Auto) 82 % (31-73) 55 % (31-73) Lymphocytes (%) (Auto) 13 % (24-48) 30 % (24-48) Monocytes (%) (Auto) 4 % (0-9) 11 % (0-9) Eosinophils (%) (Auto) 1 % (0-3) 4 % (0-3) Basophils (%) (Auto) 1 % (0-3) 0 % (0-3) Neutrophils # (Auto) 11.0 x10^3uL (1.8-7.7) 4.9 x10^3uL (1.8-7.7) Lymphocytes # (Auto) 1.8 x10^3/uL (1.0-4.8) 2.7 x10^3/uL (1.0-4.8) Monocytes # (Auto) 0.5 x10^3/uL (0.0-1.1) 1.0 x10^3/uL (0.0-1.1) Eosinophils # (Auto) 0.1 x10^3/uL (0.0-0.7) 0.3 x10^3/uL (0.0-0.7) Basophils # (Auto) 0.1 x10^3/uL (0.0-0.2) 0.0 x10^3/uL (0.0-0.2) Sodium Level 141 mmol/L (136-145) 138 mmol/L (136-145) Potassium Level 4.3 mmol/L (3.5-5.1) 4.0 mmol/L (3.5-5.1) Chloride Level 103 mmol/L (98-107) 102 mmol/L (98-107) Carbon Dioxide Level 28 mmol/L (21-32) 27 mmol/L (21-32) Anion Gap 10 (6-14) 9 (6-14) Blood Urea Nitrogen 10 mg/dL (8-26) 13 mg/dL (8-26) Creatinine 0.8 mg/dL (0.7-1.3) 0.9 mg/dL (0.7-1.3) Estimated GFR (Cockcroft-Gault) 100.4 87.6 BUN/Creatinine Ratio 13 (6-20) Glucose Level 93 mg/dL (70-99) 86 mg/dL (70-99) Calcium Level 9.2 mg/dL (8.5-10.1) 8.4 mg/dL (8.5-10.1) Total Bilirubin 0.4 mg/dL (0.2-1.0) Aspartate Amino Transf (AST/SGOT) 19 U/L (15-37) Alanine Aminotransferase (ALT/SGPT) 24 U/L (16-63) Alkaline Phosphatase 64 U/L (46-116) Total Protein 7.6 g/dL (6.4-8.2) Albumin 3.9 g/dL (3.4-5.0) Albumin/Globulin Ratio 1.1 (1.0-1.7) Laboratory Tests Test 01/03/19 12:30 01/04/19 03:05 White Blood Count 13.5 x10^3/uL (4.0-11.0) 8.9 x10^3/uL (4.0-11.0) Red Blood Count 4.65 x10^6/uL (4.30-5.70) 3.94 x10^6/uL (4.30-5.70) Hemoglobin 15.0 g/dL (13.0-17.5) 12.8 g/dL (13.0-17.5) Hematocrit 45.2 % (39.0-53.0) 38.4 % (39.0-53.0) Mean Corpuscular Volume 97 fL (79-100) 98 fL (79-100) Mean Corpuscular Hemoglobin 32 pg (25-35) 33 pg (25-35) Mean Corpuscular Hemoglobin Concent 33 g/dL (31-37) 33 g/dL (31-37) Red Cell Distribution Width 13.6 % (11.5-14.5) 13.8 % (11.5-14.5) Platelet Count 361 x10^3/uL (140-400) 326 x10^3/uL (140-400) Neutrophils (%) (Auto) 82 % (31-73) 55 % (31-73) Lymphocytes (%) (Auto) 13 % (24-48) 30 % (24-48) Monocytes (%) (Auto) 4 % (0-9) 11 % (0-9) Eosinophils (%) (Auto) 1 % (0-3) 4 % (0-3) Basophils (%) (Auto) 1 % (0-3) 0 % (0-3) Neutrophils # (Auto) 11.0 x10^3uL (1.8-7.7) 4.9 x10^3uL (1.8-7.7) Lymphocytes # (Auto) 1.8 x10^3/uL (1.0-4.8) 2.7 x10^3/uL (1.0-4.8) Monocytes # (Auto) 0.5 x10^3/uL (0.0-1.1) 1.0 x10^3/uL (0.0-1.1) Eosinophils # (Auto) 0.1 x10^3/uL (0.0-0.7) 0.3 x10^3/uL (0.0-0.7) Basophils # (Auto) 0.1 x10^3/uL (0.0-0.2) 0.0 x10^3/uL (0.0-0.2) Sodium Level 141 mmol/L (136-145) 138 mmol/L (136-145) Potassium Level 4.3 mmol/L (3.5-5.1) 4.0 mmol/L (3.5-5.1) Chloride Level 103 mmol/L (98-107) 102 mmol/L (98-107) Carbon Dioxide Level 28 mmol/L (21-32) 27 mmol/L (21-32) Anion Gap 10 (6-14) 9 (6-14) Blood Urea Nitrogen 10 mg/dL (8-26) 13 mg/dL (8-26) Creatinine 0.8 mg/dL (0.7-1.3) 0.9 mg/dL (0.7-1.3) Estimated GFR (Cockcroft-Gault) 100.4 87.6 BUN/Creatinine Ratio 13 (6-20) Glucose Level 93 mg/dL (70-99) 86 mg/dL (70-99) Calcium Level 9.2 mg/dL (8.5-10.1) 8.4 mg/dL (8.5-10.1) Total Bilirubin 0.4 mg/dL (0.2-1.0) Aspartate Amino Transf (AST/SGOT) 19 U/L (15-37) Alanine Aminotransferase (ALT/SGPT) 24 U/L (16-63) Alkaline Phosphatase 64 U/L (46-116) Total Protein 7.6 g/dL (6.4-8.2) Albumin 3.9 g/dL (3.4-5.0) Albumin/Globulin Ratio 1.1 (1.0-1.7) Medications Current Medications Fentanyl Citrate (Fentanyl 2ml Vial) 75 mcg 1X ONCE IV Last administered on at 11:31; Start 01/03/19 at 11:30; Stop 01/03/19 at 11:31; Status DC Ondansetron HCl (Zofran) 4 mg 1X ONCE IV Last administered on 01/03/19at 11:37 ; Start 01/03/19 at 11:30; Stop 01/03/19 at 11:31; Status DC Fentanyl Citrate (Fentanyl 2ml Vial) 75 mcg 1X ONCE IV Last administered on at 11:45; Start 01/03/19 at 12:00; Stop 01/03/19 at 12:01; Status DC Hydromorphone HCl (Dilaudid) 1 mg 1X ONCE IV Last administered on 01/03/19at 12 :01; Start 01/03/19 at 12:00; Stop 01/03/19 at 12:03; Status DC Fentanyl Citrate (Fentanyl 2ml Vial) 50 mcg 1X ONCE IV Last administered on at 14:26; Start 01/03/19 at 14:00; Stop 01/03/19 at 14:01; Status DC Ondansetron HCl (Zofran) 4 mg PRN Q8HRS PRN IV NAUSEA/VOMITING; Start 01/03/19 at 13:45; Stop 01/03/19 at 15:05; Status DC Fentanyl Citrate (Fentanyl 2ml Vial) 50 mcg PRN Q1HR PRN IV PAIN; Start at 13:45; Stop 01/04/19 at 13:44 Sodium Chloride 1,000 ml @ 125 mls/hr Q8H IV Last administered on 01/04/19at 01 :47; Start 01/03/19 at 13:39; Stop 01/04/19 at 13:38 Ringer's Solution 1,000 ml @ 50 mls/hr Q20H IV ; Start 01/03/19 at 14:59 Ondansetron HCl (Zofran) 4 mg PRN Q6HRS PRN IV NAUSEA/VOMITING; Start 01/03/19 at 15:00 Hydromorphone HCl (Dilaudid) 0.5 mg PRN Q3HRS PRN IV PAIN; Start 01/03/19 at 15 :00 Hydromorphone HCl (Dilaudid) 1 mg PRN Q3HRS PRN IV PAIN Last administered on at 08:51; Start 01/03/19 at 15:00 Acetaminophen/ Hydrocodone Bitart (Lortab 5/325) 1 tab PRN Q4HRS PRN PO MILD PAIN Last administered on 01/04/19at 01:46; Start 01/03/19 at 15:00 Acetaminophen (Tylenol) 650 mg PRN Q6HRS PRN PO Headaches, Temp > 101.5F; Start 01/03/19 at 15:00 Senna/Docusate Sodium (Senna Plus) 1 tab BID PO Last administered on 01/04/19at 09:07; Start 01/03/19 at 21:00 Magnesium Hydroxide (Milk Of Magnesia) 2,400 mg PRN Q12HR PRN PO CONSTIPATION; Start 01/03/19 at 15:00 Nicotine (Nicoderm Cq 21mg) 1 patch DAILY TD Last administered on 01/04/19at 09: 07; Start 01/03/19 at 15:00 Lidocaine HCl (Glydo (Lidocaine) Jelly) 1 stephen 1X ONCE MM Last administered on 01/03/19at 15:30; Start 01/03/19 at 15:30; Stop 01/03/19 at 15:32; Status DC Ondansetron HCl (Zofran) 4 mg PRN Q6HRS PRN IV NAUSEA/VOMITING; Start 01/04/19 at 07:00; Stop 01/05/19 at 06:59 Fentanyl Citrate (Fentanyl 2ml Vial) 25 mcg PRN Q5MIN PRN IV MILD PAIN; Start 01/04/19 at 07:00; Stop 01/05/19 at 06:59 Fentanyl Citrate (Fentanyl 2ml Vial) 50 mcg PRN Q5MIN PRN IV MODERATE TO SEVERE PAIN; Start 01/04/19 at 07:00; Stop 01/05/19 at 06:59 Morphine Sulfate (Morphine Sulfate) 1 mg PRN Q10MIN PRN IV SEVERE PAIN; Start 01/04/19 at 07:00; Stop 01/05/19 at 06:59 Ringer's Solution 1,000 ml @ 30 mls/hr Q24H IV ; Start 01/04/19 at 07:00; Stop 01/04/19 at 18:59 Lidocaine HCl (Xylocaine-Mpf 1% 2ml Vial) 2 ml PRN 1X PRN ID IV START; Start at 07:00; Stop 01/05/19 at 06:59 Hydromorphone HCl (Dilaudid) 0.5 mg PRN Q10MIN PRN IV SEV PAIN, Second choice; Start 01/04/19 at 07:00; Stop 01/05/19 at 06:59 Prochlorperazine Edisylate (Compazine) 5 mg PACU PRN PRN IV NAUSEA, MRX1; Start 01/04/19 at 07:00; Stop 01/05/19 at 06:59 Cefazolin Sodium/ Dextrose 50 ml @ 100 mls/hr 1X PREOP PRN IV SEE COMMENTS; Start 01/03/19 at 16:00; Stop 01/05/19 at 15:59 Propofol 0 ml @ As Directed STK-MED ONCE IV ; Start 01/04/19 at 06:56; Stop at 06:57; Status DC Dexamethasone Sodium Phosphate (Decadron) 20 mg STK-MED ONCE .ROUTE ; Start at 06:56; Stop 01/04/19 at 06:57; Status DC Famotidine (Pepcid Vial) 20 mg STK-MED ONCE .ROUTE ; Start 01/04/19 at 06:56; Stop 01/04/19 at 06:57; Status DC Lidocaine HCl (Lidocaine Pf 2% Vial) 5 ml STK-MED ONCE .ROUTE ; Start 01/04/19 at 06:56; Stop 01/04/19 at 06:57; Status DC Ondansetron HCl (Zofran) 4 mg STK-MED ONCE .ROUTE ; Start 01/04/19 at 06:56; Stop 01/04/19 at 06:57; Status DC Rocuronium [place] (Zemuron) 50 mg STK-MED ONCE .ROUTE ; Start 01/04/19 at 06:56 ; Stop 01/04/19 at 06:57; Status DC Fentanyl Citrate (Fentanyl 2ml Vial) 100 mcg STK-MED ONCE .ROUTE ; Start at 06:56; Stop 01/04/19 at 06:57; Status DC Midazolam HCl (Versed) 2 mg STK-MED ONCE .ROUTE ; Start 01/04/19 at 06:56; Stop 01/04/19 at 06:58; Status DC Morphine Sulfate 5 mg/Ketorolac Tromethamine 30 mg/Ropivacaine 60 ml/ Epinephrine HCl 0.5 mg/Sodium Chloride 100 ml @ 100 mls/hr 1X ONCE INT ART ; Start 01/04/19 at 08:00; Stop 01/04/19 at 08:59; Status DC Lidocaine HCl (Lidocaine Pf 2% Vial) 5 ml STK-MED ONCE .ROUTE ; Start 01/04/19 at 07:45; Stop 01/04/19 at 07:46; Status DC Vitals/I & O Vital Sign - Last 24 Hours 01/03/19 01/03/19 01/03/19 01/03/19 11:20 11:31 12:20 13:20 Temp 98.4 98.4 Pulse 84 82 77 Resp 18 16 18 18 B/P (MAP) 145/68 (93) 132/60 (84) 109/57 (74) Pulse Ox 99 99 96 97 O2 Delivery Room Air Room Air 01/03/19 01/03/19 01/03/19 01/03/19 14:20 15:00 15:00 16:00 Temp 99.0 99.0 Pulse 89 71 Resp 18 20 B/P (MAP) 111/50 (70) 101/55 (70) Pulse Ox 97 96 96 O2 Delivery Room Air Room Air Room Air 01/03/19 01/03/19 01/03/19 01/03/19 16:58 19:00 19:14 20:00 Temp 97.7 97.7 Pulse 58 Resp 20 B/P (MAP) 88/55 (66) Pulse Ox 100 O2 Delivery Room Air Room Air Room Air Room Air 01/03/19 01/03/19 01/03/19 01/04/19 21:17 22:00 22:43 01:46 Temp 98.2 98.2 Pulse 84 Resp 20 20 20 20 B/P (MAP) 97/57 (70) Pulse Ox 100 96 100 100 O2 Delivery Room Air Room Air Room Air Room Air 01/04/19 01/04/19 01/04/19 01/04/19 02:46 03:00 03:08 03:38 Temp 97.9 97.9 Pulse 66 Resp 20 20 20 18 B/P (MAP) 110/67 (81) Pulse Ox 100 100 100 100 O2 Delivery Room Air Room Air Room Air Room Air 01/04/19 01/04/19 01/04/19 06:11 06:42 08:51 Temp 98.1 98.1 Pulse 68 Resp 18 16 B/P (MAP) 117/64 Pulse Ox 100 100 O2 Delivery Room Air Room Air Room Air Intake and Output 01/03/19 01/03/19 01/04/19 14:59 22:59 06:59 Intake Total 120 ml 0 ml Output Total 600 ml Balance 120 ml -600 ml RUFINO SRIVASTAVA MD Jan 04, 2019 09:26
[2019-01-04] MEDS: IV RINGERS,LACTATED 1000ML 1,000 ML IV SCH (10:59)
--- NOTE | 2019-01-04 13:09 | NUR ---
SS following for discharge planning. SS reviewed pt chart. Pt is a self pay pt from home alone and is currently on room air. 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 No discharge needs noted at this time. SS will continue to follow for pending discharge needs.
[2019-01-04] MEDS ORDERED: PROPOFOL 20 ML IV ONE (16:37)
[2019-01-04] MEDS ORDERED: SUCCINYLCHOLINE 200 MG/10 ML VIAL. ONE (16:37)
[2019-01-04] MEDS ORDERED: DESFLURANE 61 TO 120 MINUTES IH ONE (17:34)
[2019-01-04] MEDS ORDERED: GLYCOPYRROLATE 1 MG/5 ML VIAL. ONE (18:02)
--- NOTE | 2019-01-04 20:28 | PDOC4 ---
Operative Note Operative Note Date of Procedure: January 04, 2019 Pre-Op Diagnosis: Displaced subtrochanteric fracture of right femur, initial encounter for closed fracture S72.21 XA Post-Op Diagnosis: same Procedure: right hip treatment of subtrochanteric femoral fracture with intramedullary implant, with interlocking screws and cerclage, CPT 22203 Surgeon: Anil Kerr MD Anesthesia Type: General EBL: 300 mL Specimens Obtained: none Complications: None Implants: * [place] T2 recon system reconstruction nail R1.5 titanium right 10 x 400 x 125 , T2 recon system lag screw 6.5 x 100, T2 recon system lag screw 6.5 x 95, locking screw fully threaded 5 mm x 50 mm * Kinamed SuperCable Iso-Elastic Cerclage System with 1.5 mm polymer cables and titanium clasp 2 INDICATION FOR PROCEDURE: This patient is 53 years old, and fell on ice while getting out of his truck at work, sustaining a right hip fracture. X-rays show a displaced unstable reverse obliquity subtrochanteric fracture. The patient and I discussed the risks, benefits and alternatives of treatment. The alternative for surgical treatment is bedrest, which I generally do not recommend. I recommended intramedullary nailing, and I talked to him about the potential risks of this, including bleeding, infection, blood clots, malunion, nonunion or other potential surgical or anesthetic complications. All of the questions about surgery were answered, and he desired to proceed. A written consent was obtained. PROCEDURE IN DETAIL: The patient was identified in the preoperative holding area. The correct right hip was marked by me. The patient was taken to the operating room, where the patient was anesthetized by the Department of Anesthesia. Preoperative antibiotics were given intravenously. The HANA table was used and the well leg was placed in a padded lithotomy leg fernández while the foot of the left leg was placed in a traction foot boot. A time-out procedure was performed. The image intensifier was used, and a preliminary reduction performed. All of the images were interpreted intraoperatively by me, and the image intensifier was used throughout the case. The right hip area was prepared in sterile fashion with ChloraPrep solution and a sterile barrier [place] hip drape was used. An incision was made over the proximal femur at the location of the fracture site. Sharp dissection was used through the fascia viridiana and fascia of the vastus lateralis. The vastus lateralis muscle was elevated and deep retractors were placed. The fracture was easily identified. I used the Kinamed SuperCable Iso-Elastic Cerclage System with 1.5 mm polymer cables and titanium clasp. A cable passer was passed over the femur, at the periosteal level with care made not to cerclage soft tissues or neurovascular structures. The 2 tails of the polymer cable were fed into the cable passer, and the passer was able to be removed. I then used the tensioner device to cerclage the fracture. A second cable was placed slightly superior, closer to the lesser trochanter. I did not one place this too far superior, at so as to avoid interference with the placement of the eventual reconstruction screws. An incision was made over the superior aspect of the greater trochanter. A 3.2 mm guide pin was placed at the tip of the greater trochanter, and advanced into the intramedullary canal. A reamer sleeve was used to protect the soft tissues. A small entry reamer was used. A long guide pin was placed down the intramedullary canal and the length was measured. The nail length was chosen based on that measurement. The canal was sequentially reamed for a long nail until intramedullary chatter occurred at 12 mm. The nail diameter , 10 mm, was chosen based on the intramedullary chatter. The chosen nail was attached to the targeting device with the Nail Holding Screw. The nail was placed down the canal on the targeting device, and the guide wire was removed. The previous incision for the cables was used, and the guide system for the recon nail was placed. The lower screw cannula was secured with a guidewire. The upper screw cannula was drilled, and measurements taken off the drill. The upper lag screw was placed with good fixation. The lower cannula guidewire was removed and drilled and measured. The chosen screws were inserted using the guide and advanced until there was a low tip-apex distance, by using sequential checks on the image intensifier. Traction on the HANA table was released. Finally, a 5.0 mm diameter Distal Cross Lock Screw was placed distally near the knee, using a freehand technique and the image intensifier, after predrilling. Satisfactory fracture reduction and hardware position was obtained using image intensifier views in multiple planes. Copious irrigation was used and the fascia was closed with #2 Vicryl. Bovie electrocautery was used for hemostasis. I completed the closure with 2-0 Vicryl and annie. I used a multidrug injection for hemostasis and pain relief which includes ropivacaine, epinephrine , and morphine. A bulky sterile dressing was applied. The patient was gently transferred from the fracture table back to a hospital bed. There were no apparent complications. ANIL KERR MD Jan 04, 2019 20:28
[2019-01-04] MEDS ORDERED: POLYETHYLENE GLYCOL 3350 17 GM PACKET. PO PRN (20:45)
[2019-01-04] MEDS ORDERED: MORPHINE SULFATE 2 MG/ML VIAL. IV PRN (20:45)
[2019-01-04] MEDS ORDERED: oxyCODONE/APAP 5/325 1 TAB TABLET PO PRN (20:45)
[2019-01-04] MEDS ORDERED: CALCIUM CARBONATE 500 MG TAB.CHEW PO PRN (20:45)
[2019-01-04] MEDS ORDERED: DEXTROSE 50% 25 GM / 50ML DISP.SYRIN. IV PRN (20:45)
[2019-01-04] MEDS ORDERED: IV 1/2 NORMAL SALINE 1,000 ML IV SCH (21:00)
[2019-01-04] MEDS: ASPIRIN ENTERIC COATED 325 MG TABLET.DR. PO SCH (21:00)
--- NOTE | 2019-01-04 21:10 | NUR ---
Patient was transported from PACU to the floor via bed. RN performed a head to toe assessment at that time. Patient rated pain a 0/10 and VSS. Orders were received and implemented at that time. RN will continue to monitor.
[2019-01-05] VITALS (8 sets, daily range): BP systolic 87–124; BP diastolic 47–76
[2019-01-05] MEDS: MORPHINE SULFATE 4 MG/ML VIAL. IV PRN (01:23)
[2019-01-05] MEDS: oxyCODONE/APAP 5/325 1 TAB TABLET PO PRN ×5 (04:10→21:08)
[2019-01-05] MEDS ORDERED: MAGNESIUM HYDROXIDE 2,400 MG/30 ML ORAL.SUSP. PO PRN (06:00)
[2019-01-05 06:01] LABS: BASO % 0 % (0-3); EOS % 0 % (0-3); HEMATOCRIT 30.9 % (39.0-53.0); HEMOGLOBIN 10.3 g/dL (13.0-17.5); LYMPH % 9 % (24-48); MEAN CORPUSCULAR HEMOGLOBIN 33 pg (25-35); MEAN CORPUSCULAR HGB CONC 33 g/dL (31-37); MEAN CORPUSCULAR VOLUME 99 fL (79-100); MONO # 0.9 x10^3/uL (0.0-1.1); MONO % 8 % (0-9); NEUT # 9.5 x10^3uL (1.8-7.7); NEUT % 83 % (31-73); PLATELET COUNT 270 x10^3/uL (140-400); RED BLOOD COUNT 3.12 x10^6/uL (4.30-5.70); RED CELL DISTRIBUTION WIDTH 13.8 % (11.5-14.5); WHITE BLOOD COUNT 11.5 x10^3/uL (4.0-11.0)
[2019-01-05 06:09] LABS: CALCIUM 8.2 mg/dL (8.5-10.1); CREATININE 0.9 mg/dL (0.7-1.3); GFR 87.6; POTASSIUM 4.6 mmol/L (3.5-5.1)
--- NOTE | 2019-01-05 08:09 | RAD ---
Right femur, 2 views, 01/04/2018: HISTORY: Postop evaluation There has been interval placement of surgical screws in the right femoral head and neck attached to a long intramedullary maurisio traversing the proximal femoral fracture. The fracture fragments are in good position for healing. There are 2 additional small radiopaque fixation devices along the proximal femoral cortex. There is a horizontally oriented screw related to the distal aspect of the intramedullary maurisio. Surgical skin clips are present laterally. There is no evidence of a retained surgical instrument, needle or radiopaque sponge on these views. IMPRESSION: Satisfactory alignment status post reduction and internal fixation of the proximal femoral fracture. Electronically signed by: Chau Little MD (01/05/2019 8:06 AM) [facility]
[2019-01-05] MEDS ORDERED: CHOLECALCIFEROL (VITAMIN D3) 1,000 UNIT TABLET PO SCH (09:00)
[2019-01-05] MEDS ORDERED: SENNOSIDES/DOCUSATE 8.6/50MG TABLET. PO SCH (09:00)
[2019-01-05] MEDS: MULTIVITAMIN with MINERAL TABLET. PO SCH (09:06)
[2019-01-05] MEDS: ASPIRIN ENTERIC COATED 325 MG TABLET.DR. PO SCH ×2 (09:07→21:07)
[2019-01-05] MEDS: NICOTINE 21MG PATCH. TD SCH (09:07)
[2019-01-05] MEDS: SENNOSIDES/DOCUSATE 8.6/50MG TABLET. PO SCH ×2 (09:07→21:07)
--- NOTE | 2019-01-05 10:36 | PDOC ---
PROGRESS NOTES Subjective Subjective Hip pain much improved after surgery. No complaints. Objective Vital Signs Vital Signs Date Time Temp Pulse Resp B/P (MAP) Pulse Ox O2 Delivery O2 Flow Rate FiO2 01/05/19 09:10 16 Room Air 01/05/19 07:00 98.2 71 109/53 (71) 100 98.2 01/04/19 20:05 8 Physical Exam The thigh is soft and nontender. Dressings are dry. Distal neurovascular function seems intact. Length and alignment appear appropriate. He still has a Burks in and has not been out of bed much. Labs Laboratory Tests Test 01/03/19 12:30 01/03/19 16:45 01/04/19 03:05 01/05/19 05:30 White Blood Count 13.5 x10^3/uL (4.0-11.0) 8.9 x10^3/uL (4.0-11.0) 11.5 x10^3/uL (4.0-11.0) Red Blood Count 4.65 x10^6/uL (4.30-5.70) 3.94 x10^6/uL (4.30-5.70) 3.12 x10^6/uL (4.30-5.70) Hemoglobin 15.0 g/dL (13.0-17.5) 12.8 g/dL (13.0-17.5) 10.3 g/dL (13.0-17.5) Hematocrit 45.2 % (39.0-53.0) 38.4 % (39.0-53.0) 30.9 % (39.0-53.0) Mean Corpuscular Volume 97 fL (79-100) 98 fL (79-100) 99 fL (79-100) Mean Corpuscular Hemoglobin 32 pg (25-35) 33 pg (25-35) 33 pg (25-35) Mean Corpuscular Hemoglobin Concent 33 g/dL (31-37) 33 g/dL (31-37) 33 g/dL (31-37) Red Cell Distribution Width 13.6 % (11.5-14.5) 13.8 % (11.5-14.5) 13.8 % (11.5-14.5) Platelet Count 361 x10^3/uL (140-400) 326 x10^3/uL (140-400) 270 x10^3/uL (140-400) Neutrophils (%) (Auto) 82 % (31-73) 55 % (31-73) 83 % (31-73) Lymphocytes (%) (Auto) 13 % (24-48) 30 % (24-48) 9 % (24-48) Monocytes (%) (Auto) 4 % (0-9) 11 % (0-9) 8 % (0-9) Eosinophils (%) (Auto) 1 % (0-3) 4 % (0-3) 0 % (0-3) Basophils (%) (Auto) 1 % (0-3) 0 % (0-3) 0 % (0-3) Neutrophils # (Auto) 11.0 x10^3uL (1.8-7.7) 4.9 x10^3uL (1.8-7.7) 9.5 x10^3uL (1.8-7.7) Lymphocytes # (Auto) 1.8 x10^3/uL (1.0-4.8) 2.7 x10^3/uL (1.0-4.8) 1.0 x10^3/uL (1.0-4.8) Monocytes # (Auto) 0.5 x10^3/uL (0.0-1.1) 1.0 x10^3/uL (0.0-1.1) 0.9 x10^3/uL (0.0-1.1) Eosinophils # (Auto) 0.1 x10^3/uL (0.0-0.7) 0.3 x10^3/uL (0.0-0.7) 0.0 x10^3/uL (0.0-0.7) Basophils # (Auto) 0.1 x10^3/uL (0.0-0.2) 0.0 x10^3/uL (0.0-0.2) 0.0 x10^3/uL (0.0-0.2) Sodium Level 141 mmol/L (136-145) 138 mmol/L (136-145) 140 mmol/L (136-145) Potassium Level 4.3 mmol/L (3.5-5.1) 4.0 mmol/L (3.5-5.1) 4.6 mmol/L (3.5-5.1) Chloride Level 103 mmol/L (98-107) 102 mmol/L (98-107) 105 mmol/L (98-107) Carbon Dioxide Level 28 mmol/L (21-32) 27 mmol/L (21-32) 29 mmol/L (21-32) Anion Gap 10 (6-14) 9 (6-14) 6 (6-14) Blood Urea Nitrogen 10 mg/dL (8-26) 13 mg/dL (8-26) 10 mg/dL (8-26) Creatinine 0.8 mg/dL (0.7-1.3) 0.9 mg/dL (0.7-1.3) 0.9 mg/dL (0.7-1.3) Estimated GFR (Cockcroft-Gault) 100.4 87.6 87.6 BUN/Creatinine Ratio 13 (6-20) Glucose Level 93 mg/dL (70-99) 86 mg/dL (70-99) 102 mg/dL (70-99) Calcium Level 9.2 mg/dL (8.5-10.1) 8.4 mg/dL (8.5-10.1) 8.2 mg/dL (8.5-10.1) Total Bilirubin 0.4 mg/dL (0.2-1.0) Aspartate Amino Transf (AST/SGOT) 19 U/L (15-37) Alanine Aminotransferase (ALT/SGPT) 24 U/L (16-63) Alkaline Phosphatase 64 U/L (46-116) Total Protein 7.6 g/dL (6.4-8.2) Albumin 3.9 g/dL (3.4-5.0) Albumin/Globulin Ratio 1.1 (1.0-1.7) Nasal Screen MRSA (PCR) Negative (Negative) 25-Hydroxy Vitamin D Total 20.0 ng/mL (30-100) Laboratory Tests Test 01/05/19 05:30 White Blood Count 11.5 x10^3/uL (4.0-11.0) Red Blood Count 3.12 x10^6/uL (4.30-5.70) Hemoglobin 10.3 g/dL (13.0-17.5) Hematocrit 30.9 % (39.0-53.0) Mean Corpuscular Volume 99 fL (79-100) Mean Corpuscular Hemoglobin 33 pg (25-35) Mean Corpuscular Hemoglobin Concent 33 g/dL (31-37) Red Cell Distribution Width 13.8 % (11.5-14.5) Platelet Count 270 x10^3/uL (140-400) Neutrophils (%) (Auto) 83 % (31-73) Lymphocytes (%) (Auto) 9 % (24-48) Monocytes (%) (Auto) 8 % (0-9) Eosinophils (%) (Auto) 0 % (0-3) Basophils (%) (Auto) 0 % (0-3) Neutrophils # (Auto) 9.5 x10^3uL (1.8-7.7) Lymphocytes # (Auto) 1.0 x10^3/uL (1.0-4.8) Monocytes # (Auto) 0.9 x10^3/uL (0.0-1.1) Eosinophils # (Auto) 0.0 x10^3/uL (0.0-0.7) Basophils # (Auto) 0.0 x10^3/uL (0.0-0.2) Sodium Level 140 mmol/L (136-145) Potassium Level 4.6 mmol/L (3.5-5.1) Chloride Level 105 mmol/L (98-107) Carbon Dioxide Level 29 mmol/L (21-32) Anion Gap 6 (6-14) Blood Urea Nitrogen 10 mg/dL (8-26) Creatinine 0.9 mg/dL (0.7-1.3) Estimated GFR (Cockcroft-Gault) 87.6 Glucose Level 102 mg/dL (70-99) Calcium Level 8.2 mg/dL (8.5-10.1) 25-Hydroxy Vitamin D Total 20.0 ng/mL (30-100) Imaging [facility] [address] [facility] [place] [address] IMAGING REPORT Signed PATIENT: ANJALI EVANS ACCOUNT: [id number] : 1965 LOCATION: [address] [place] [address] AGE: 53 SEX: M EXAM STATUS: ADM IN ORD. PHYSICIAN: ANIL OCONNOR MD REASON: postop--(to take to [place]) PROCEDURE: RIGHT FEMUR XRAY Right femur, 2 views, 01/04/2018: HISTORY: Postop evaluation There has been interval placement of surgical screws in the right femoral head and neck attached to a long intramedullary maurisio traversing the proximal femoral fracture. The fracture fragments are in good position for healing. There are 2 additional small radiopaque fixation devices along the proximal femoral cortex. There is a horizontally oriented screw related to the distal aspect of the intramedullary maurisio. Surgical skin clips are present laterally. There is no evidence of a retained surgical instrument, needle or radiopaque sponge on these views. IMPRESSION: Satisfactory alignment status post reduction and internal fixation of the proximal femoral fracture. Electronically signed by: Chau Little MD (01/05/2019 8:06 AM) [facility] DICTATED and SIGNED BY: CHAU LITTLE MD DATE: 01/05/19 0800 Assessment Assessment Postoperative day 1 after right hip subtrochanteric fracture fixation with cerclage and intramedullary nail Plan Plan of Care Discontinue the Burks. He may weight-bear as tolerated. Mobilization. Outpatient DVT prophylaxis with aspirin twice a day and mobilization seems adequate for this relatively young active man with a hip fracture. Probable discharge tomorrow if ok with hospitalist. ANIL OCONNOR MD Jan 05, 2019 10:36
--- NOTE | 2019-01-05 15:24 | NUR ---
RUBA following up with pt dc plan. RUBA met with pt to discuss options. RUBA explained to pt he does not qualify for services or placement due to not having insurance. RUBA informed pt he would have to pay out of pocket for services. Pt verbalized understanding and reported this is not an affordable option. 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 Pt plans to take the [employer] bus back to his home town upon dc. Pt's girlfriend is a nurse and will provide care for him when he returns home. RUBA provided pt with a walker and informed him [facility] can provide a cab voucher to the bus station if he does not have the funding. Pt accepted walker and verbalized understanding. Pt's RN has been notified.
--- NOTE | 2019-01-05 15:49 | PDOC ---
PROGRESS NOTES Chief Complaint Chief Complaint Right hip fracture - traumatic, ortho surg yesterday traumatic hip fracture, improving welll tobacco use disorder vit D deficiency History of Present Illness History of Present Illness pain better, he feels improved, no evnet Vitals Vitals Vital Signs Date Time Temp Pulse Resp B/P (MAP) Pulse Ox O2 Delivery O2 Flow Rate FiO2 01/05/19 13:50 16 Room Air 01/05/19 11:00 98.2 84 124/63 (83) 100 98.2 01/04/19 20:05 8 Physical Exam General: Alert, Cooperative Heart: Regular rate Abdomen: Soft Extremities: No edema, Normal pulses Skin: No significant lesion, Other (skin intact over the fracture) Labs LABS Laboratory Tests Test 01/05/19 05:30 White Blood Count 11.5 x10^3/uL (4.0-11.0) Red Blood Count 3.12 x10^6/uL (4.30-5.70) Hemoglobin 10.3 g/dL (13.0-17.5) Hematocrit 30.9 % (39.0-53.0) Mean Corpuscular Volume 99 fL (79-100) Mean Corpuscular Hemoglobin 33 pg (25-35) Mean Corpuscular Hemoglobin Concent 33 g/dL (31-37) Red Cell Distribution Width 13.8 % (11.5-14.5) Platelet Count 270 x10^3/uL (140-400) Neutrophils (%) (Auto) 83 % (31-73) Lymphocytes (%) (Auto) 9 % (24-48) Monocytes (%) (Auto) 8 % (0-9) Eosinophils (%) (Auto) 0 % (0-3) Basophils (%) (Auto) 0 % (0-3) Neutrophils # (Auto) 9.5 x10^3uL (1.8-7.7) Lymphocytes # (Auto) 1.0 x10^3/uL (1.0-4.8) Monocytes # (Auto) 0.9 x10^3/uL (0.0-1.1) Eosinophils # (Auto) 0.0 x10^3/uL (0.0-0.7) Basophils # (Auto) 0.0 x10^3/uL (0.0-0.2) Sodium Level 140 mmol/L (136-145) Potassium Level 4.6 mmol/L (3.5-5.1) Chloride Level 105 mmol/L (98-107) Carbon Dioxide Level 29 mmol/L (21-32) Anion Gap 6 (6-14) Blood Urea Nitrogen 10 mg/dL (8-26) Creatinine 0.9 mg/dL (0.7-1.3) Estimated GFR (Cockcroft-Gault) 87.6 Glucose Level 102 mg/dL (70-99) Calcium Level 8.2 mg/dL (8.5-10.1) 25-Hydroxy Vitamin D Total 20.0 ng/mL (30-100) Review of Systems Review of Systems no stool, pain better Assessment and Plan Assessmemt and Plan Problems Medical Problems: (1) Closed right hip fracture Status: Acute Comment Review of Relevant I have reviewed the following items anisha (where applicable) has been applied. Labs Laboratory Tests Test 01/03/19 16:45 01/04/19 03:05 01/05/19 05:30 Nasal Screen MRSA (PCR) Negative (Negative) White Blood Count 8.9 x10^3/uL (4.0-11.0) 11.5 x10^3/uL (4.0-11.0) Red Blood Count 3.94 x10^6/uL (4.30-5.70) 3.12 x10^6/uL (4.30-5.70) Hemoglobin 12.8 g/dL (13.0-17.5) 10.3 g/dL (13.0-17.5) Hematocrit 38.4 % (39.0-53.0) 30.9 % (39.0-53.0) Mean Corpuscular Volume 98 fL (79-100) 99 fL (79-100) Mean Corpuscular Hemoglobin 33 pg (25-35) 33 pg (25-35) Mean Corpuscular Hemoglobin Concent 33 g/dL (31-37) 33 g/dL (31-37) Red Cell Distribution Width 13.8 % (11.5-14.5) 13.8 % (11.5-14.5) Platelet Count 326 x10^3/uL (140-400) 270 x10^3/uL (140-400) Neutrophils (%) (Auto) 55 % (31-73) 83 % (31-73) Lymphocytes (%) (Auto) 30 % (24-48) 9 % (24-48) Monocytes (%) (Auto) 11 % (0-9) 8 % (0-9) Eosinophils (%) (Auto) 4 % (0-3) 0 % (0-3) Basophils (%) (Auto) 0 % (0-3) 0 % (0-3) Neutrophils # (Auto) 4.9 x10^3uL (1.8-7.7) 9.5 x10^3uL (1.8-7.7) Lymphocytes # (Auto) 2.7 x10^3/uL (1.0-4.8) 1.0 x10^3/uL (1.0-4.8) Monocytes # (Auto) 1.0 x10^3/uL (0.0-1.1) 0.9 x10^3/uL (0.0-1.1) Eosinophils # (Auto) 0.3 x10^3/uL (0.0-0.7) 0.0 x10^3/uL (0.0-0.7) Basophils # (Auto) 0.0 x10^3/uL (0.0-0.2) 0.0 x10^3/uL (0.0-0.2) Sodium Level 138 mmol/L (136-145) 140 mmol/L (136-145) Potassium Level 4.0 mmol/L (3.5-5.1) 4.6 mmol/L (3.5-5.1) Chloride Level 102 mmol/L (98-107) 105 mmol/L (98-107) Carbon Dioxide Level 27 mmol/L (21-32) 29 mmol/L (21-32) Anion Gap 9 (6-14) 6 (6-14) Blood Urea Nitrogen 13 mg/dL (8-26) 10 mg/dL (8-26) Creatinine 0.9 mg/dL (0.7-1.3) 0.9 mg/dL (0.7-1.3) Estimated GFR (Cockcroft-Gault) 87.6 87.6 Glucose Level 86 mg/dL (70-99) 102 mg/dL (70-99) Calcium Level 8.4 mg/dL (8.5-10.1) 8.2 mg/dL (8.5-10.1) 25-Hydroxy Vitamin D Total 20.0 ng/mL (30-100) Laboratory Tests Test 01/05/19 05:30 White Blood Count 11.5 x10^3/uL (4.0-11.0) Red Blood Count 3.12 x10^6/uL (4.30-5.70) Hemoglobin 10.3 g/dL (13.0-17.5) Hematocrit 30.9 % (39.0-53.0) Mean Corpuscular Volume 99 fL (79-100) Mean Corpuscular Hemoglobin 33 pg (25-35) Mean Corpuscular Hemoglobin Concent 33 g/dL (31-37) Red Cell Distribution Width 13.8 % (11.5-14.5) Platelet Count 270 x10^3/uL (140-400) Neutrophils (%) (Auto) 83 % (31-73) Lymphocytes (%) (Auto) 9 % (24-48) Monocytes (%) (Auto) 8 % (0-9) Eosinophils (%) (Auto) 0 % (0-3) Basophils (%) (Auto) 0 % (0-3) Neutrophils # (Auto) 9.5 x10^3uL (1.8-7.7) Lymphocytes # (Auto) 1.0 x10^3/uL (1.0-4.8) Monocytes # (Auto) 0.9 x10^3/uL (0.0-1.1) Eosinophils # (Auto) 0.0 x10^3/uL (0.0-0.7) Basophils # (Auto) 0.0 x10^3/uL (0.0-0.2) Sodium Level 140 mmol/L (136-145) Potassium Level 4.6 mmol/L (3.5-5.1) Chloride Level 105 mmol/L (98-107) Carbon Dioxide Level 29 mmol/L (21-32) Anion Gap 6 (6-14) Blood Urea Nitrogen 10 mg/dL (8-26) Creatinine 0.9 mg/dL (0.7-1.3) Estimated GFR (Cockcroft-Gault) 87.6 Glucose Level 102 mg/dL (70-99) Calcium Level 8.2 mg/dL (8.5-10.1) 25-Hydroxy Vitamin D Total 20.0 ng/mL (30-100) Medications Current Medications Fentanyl Citrate (Fentanyl 2ml Vial) 75 mcg 1X ONCE IV Last administered on at 11:31; Start 01/03/19 at 11:30; Stop 01/03/19 at 11:31; Status DC Ondansetron HCl (Zofran) 4 mg 1X ONCE IV Last administered on 01/03/19at 11:37 ; Start 01/03/19 at 11:30; Stop 01/03/19 at 11:31; Status DC Fentanyl Citrate (Fentanyl 2ml Vial) 75 mcg 1X ONCE IV Last administered on at 11:45; Start 01/03/19 at 12:00; Stop 01/03/19 at 12:01; Status DC Hydromorphone HCl (Dilaudid) 1 mg 1X ONCE IV Last administered on 01/03/19at 12 :01; Start 01/03/19 at 12:00; Stop 01/03/19 at 12:03; Status DC Fentanyl Citrate (Fentanyl 2ml Vial) 50 mcg 1X ONCE IV Last administered on at 14:26; Start 01/03/19 at 14:00; Stop 01/03/19 at 14:01; Status DC Ondansetron HCl (Zofran) 4 mg PRN Q8HRS PRN IV NAUSEA/VOMITING; Start 01/03/19 at 13:45; Stop 01/03/19 at 15:05; Status DC Fentanyl Citrate (Fentanyl 2ml Vial) 50 mcg PRN Q1HR PRN IV PAIN; Start at 13:45; Stop 01/04/19 at 13:44; Status DC Sodium Chloride 1,000 ml @ 125 mls/hr Q8H IV Last administered on 01/04/19at 01 :47; Start 01/03/19 at 13:39; Stop 01/04/19 at 13:38; Status DC Ringer's Solution 1,000 ml @ 50 mls/hr Q20H IV ; Start 01/03/19 at 14:59; Stop 01/05/19 at 06:22; Status DC Ondansetron HCl (Zofran) 4 mg PRN Q6HRS PRN IV NAUSEA/VOMITING; Start 01/03/19 at 15:00 Hydromorphone HCl (Dilaudid) 0.5 mg PRN Q3HRS PRN IV PAIN LAST CHOICE; Start at 15:00 Hydromorphone HCl (Dilaudid) 1 mg PRN Q3HRS PRN IV PAIN LAST CHOICE Last administered on 01/04/19at 22:20; Start 01/03/19 at 15:00 Acetaminophen/ Hydrocodone Bitart (Lortab 5/325) 1 tab PRN Q4HRS PRN PO MILD PAIN Last administered on 01/04/19at 01:46; Start 01/03/19 at 15:00 Acetaminophen (Tylenol) 650 mg PRN Q6HRS PRN PO Headaches, Temp > 101.5F; Start 01/03/19 at 15:00 Senna/Docusate Sodium (Senna Plus) 1 tab BID PO Last administered on 01/05/19at 09:07; Start 01/03/19 at 21:00 Magnesium Hydroxide (Milk Of Magnesia) 2,400 mg PRN Q12HR PRN PO CONSTIPATION 2ND CHOICE; Start 01/03/19 at 15:00 Nicotine (Nicoderm Cq 21mg) 1 patch DAILY TD Last administered on 01/05/19at 09: 07; Start 01/03/19 at 15:00 Lidocaine HCl (Glydo (Lidocaine) Jelly) 1 stephen 1X ONCE MM Last administered on 01/03/19at 15:30; Start 01/03/19 at 15:30; Stop 01/03/19 at 15:32; Status DC Ondansetron HCl (Zofran) 4 mg PRN Q6HRS PRN IV NAUSEA/VOMITING; Start 01/04/19 at 07:00; Stop 01/05/19 at 06:59; Status DC Fentanyl Citrate (Fentanyl 2ml Vial) 25 mcg PRN Q5MIN PRN IV MILD PAIN; Start 01/04/19 at 07:00; Stop 01/05/19 at 06:59; Status DC Fentanyl Citrate (Fentanyl 2ml Vial) 50 mcg PRN Q5MIN PRN IV MODERATE TO SEVERE PAIN; Start 01/04/19 at 07:00; Stop 01/05/19 at 06:59; Status DC Morphine Sulfate (Morphine Sulfate) 1 mg PRN Q10MIN PRN IV SEVERE PAIN; Start 01/04/19 at 07:00; Stop 01/05/19 at 06:59; Status DC Ringer's Solution 1,000 ml @ 30 mls/hr Q24H IV ; Start 01/04/19 at 07:00; Stop 01/04/19 at 18:59; Status DC Lidocaine HCl (Xylocaine-Mpf 1% 2ml Vial) 2 ml PRN 1X PRN ID IV START; Start at 07:00; Stop 01/05/19 at 06:59; Status DC Hydromorphone HCl (Dilaudid) 0.5 mg PRN Q10MIN PRN IV SEV PAIN, Second choice; Start 01/04/19 at 07:00; Stop 01/05/19 at 06:59; Status DC Prochlorperazine Edisylate (Compazine) 5 mg PACU PRN PRN IV NAUSEA, MRX1; Start 01/04/19 at 07:00; Stop 01/05/19 at 06:59; Status DC Cefazolin Sodium/ Dextrose 50 ml @ 100 mls/hr 1X PREOP PRN IV SEE COMMENTS Last administered on 01/04/19at 17:30; Start 01/03/19 at 16:00; Stop 01/05/19 at 15:59 Propofol 0 ml @ As Directed STK-MED ONCE IV ; Start 01/04/19 at 06:56; Stop at 06:57; Status DC Dexamethasone Sodium Phosphate (Decadron) 20 mg STK-MED ONCE .ROUTE ; Start at 06:56; Stop 01/04/19 at 06:57; Status DC Famotidine (Pepcid Vial) 20 mg STK-MED ONCE .ROUTE ; Start 01/04/19 at 06:56; Stop 01/04/19 at 06:57; Status DC Lidocaine HCl (Lidocaine Pf 2% Vial) 5 ml STK-MED ONCE .ROUTE ; Start 01/04/19 at 06:56; Stop 01/04/19 at 06:57; Status DC Ondansetron HCl (Zofran) 4 mg STK-MED ONCE .ROUTE ; Start 01/04/19 at 06:56; Stop 01/04/19 at 06:57; Status DC Rocuronium Alna (Zemuron) 50 mg STK-MED ONCE .ROUTE ; Start 01/04/19 at 06:56 ; Stop 01/04/19 at 06:57; Status DC Fentanyl Citrate (Fentanyl 2ml Vial) 100 mcg STK-MED ONCE .ROUTE ; Start at 06:56; Stop 01/04/19 at 06:57; Status DC Midazolam HCl (Versed) 2 mg STK-MED ONCE .ROUTE ; Start 01/04/19 at 06:56; Stop 01/04/19 at 06:58; Status DC Morphine Sulfate 5 mg/Ketorolac Tromethamine 30 mg/Ropivacaine 60 ml/ Epinephrine HCl 0.5 mg/Sodium Chloride 100 ml @ 100 mls/hr 1X ONCE INT ART ; Start 01/04/19 at 08:00; Stop 01/04/19 at 08:59; Status Cancel Lidocaine HCl (Lidocaine Pf 2% Vial) 5 ml STK-MED ONCE .ROUTE ; Start 01/04/19 at 07:45; Stop 01/04/19 at 07:46; Status DC Morphine Sulfate 5 mg/Ketorolac Tromethamine 30 mg/Ropivacaine 60 ml/ Epinephrine HCl 0.5 mg/Sodium Chloride 100 ml @ 100 mls/hr 1X ONCE INT ART Last administered on 01/04/19at 18:26; Start 01/04/19 at 16:45; Stop 01/04/19 at 17:44; Status DC Propofol 20 ml @ As Directed STK-MED ONCE IV ; Start 01/04/19 at 16:37; Stop at 16:38; Status DC Lidocaine HCl (Lidocaine Pf 2% Vial) 5 ml STK-MED ONCE .ROUTE ; Start 01/04/19 at 16:37; Stop 01/04/19 at 16:38; Status DC Succinylcholine Chloride (Anectine) 200 mg STK-MED ONCE .ROUTE ; Start 01/04/19 at 16:37; Stop 01/04/19 at 16:38; Status DC Rocuronium Alna (Zemuron) 50 mg STK-MED ONCE .ROUTE ; Start 01/04/19 at 16:37 ; Stop 01/04/19 at 16:38; Status DC Fentanyl Citrate (Fentanyl 2ml Vial) 100 mcg STK-MED ONCE .ROUTE ; Start at 16:37; Stop 01/04/19 at 16:38; Status DC Dexamethasone Sodium Phosphate (Decadron) 20 mg STK-MED ONCE .ROUTE ; Start at 17:34; Stop 01/04/19 at 17:35; Status DC Desflurane (Suprane) 60 ml STK-MED ONCE IH ; Start 01/04/19 at 17:34; Stop 01/04 at 17:35; Status DC Glycopyrrolate (Robinul) 1 mg STK-MED ONCE .ROUTE ; Start 01/04/19 at 18:02; Stop 01/04/19 at 18:03; Status DC Cefazolin Sodium/ Dextrose 50 ml @ As Directed STK-MED ONCE IV ; Start 01/04/19 at 19:20; Stop 01/04/19 at 19:21; Status DC Morphine Sulfate (Morphine Sulfate) 2 mg PRN Q1HR PRN IV PAIN; Start 01/04/19 at 20:45 Fentanyl Citrate (Fentanyl 2ml Vial) 25 mcg PRN Q1HR PRN IV PAIN; Start at 20:45 Multivitamins (Thera M Plus) 1 tab DAILY PO Last administered on 01/05/19at 09: 06; Start 01/05/19 at 09:00 Senna/Docusate Sodium (Senna Plus) 1 tab DAILY PO ; Start 01/05/19 at 09:00; Status UNV Polyethylene Glycol (miraLAX PACKET) 17 gm PRN DAILY PRN PO CONSTIPATION 1ST CHOICE; Start 01/04/19 at 20:45 Vitamin D (Vitamin D3) 1,000 unit DAILY PO Last administered on 01/05/19at 09:06 ; Start 01/05/19 at 09:00; Stop 01/05/19 at 13:11; Status DC Sodium Chloride 1,000 ml @ 75 mls/hr [id number] IV Last administered on at 21:41; Start 01/04/19 at 21:00; Stop 01/05/19 at 06:22; Status DC Ondansetron HCl (Zofran) 4 mg PRN Q4HRS PRN IV NAUSEA/VOMITING; Start 01/04/19 at 20:45; Status UNV Calcium Carbonate/ Glycine (Tums) 500 mg PRN QID PRN PO INDIGESTION; Start at 20:45 Magnesium Hydroxide (Milk Of Magnesia) 2,400 mg 1X PRN PRN PO CONSTIPATION; Start 01/05/19 at 06:00; Stop 01/06/19 at 05:59 Bisacodyl (Dulcolax Supp) 10 mg 1X PRN PRN PA CONSTIPATION; Start 01/05/19 at 16:00; Stop 01/06/19 at 15:59 Morphine Sulfate (Morphine Sulfate) 4 mg PRN Q2HR PRN IV PAIN Last administered on 01/05/19at 01:23; Start 01/04/19 at 20:45 Dextrose (Dextrose 50%-Water Syringe) 12.5 gm PRN Q15MIN PRN IV SEE COMMENTS; Start 01/04/19 at 20:45 Cefazolin Sodium/ Dextrose 50 ml @ 100 mls/hr Q6H IV Last administered on 01/05at 11:04; Start 01/04/19 at 23:30; Stop 01/05/19 at 11:59; Status DC Oxycodone/ Acetaminophen (Percocet 5/325) 1 tab PRN Q4HRS PRN PO MODERATE PAIN Last administered on 01/04/19at 21:47; Start 01/04/19 at 20:45 Aspirin (Ecotrin) 325 mg BID PO Last administered on 01/05/19at 09:07; Start at 21:00 Oxycodone/ Acetaminophen (Percocet 5/325) 2 tab PRN Q4HRS PRN PO SEVERE PAIN Last administered on 01/05/19at 12:44; Start 01/04/19 at 21:00 Enoxaparin Sodium (Lovenox Per Pharmacy Prophylaxis Dosing) 1 each PRN DAILY PRN MC SEE COMMENTS; Start 01/05/19 at 13:15 Ergocalciferol (Vitamin D2) 50,000 unit WEEKLY PO ; Start 01/06/19 at 09:00 Enoxaparin Sodium (Lovenox 40mg Syringe) 40 mg Q24H SQ ; Start 01/05/19 at 18:00 Vitals/I & O Vital Sign - Last 24 Hours 01/04/19 01/04/19 01/04/19 01/04/19 20:05 20:05 20:20 20:35 Temp 98.6 98.6 98.6 98.6 98.6 98.6 Pulse 107 108 106 Resp 18 20 20 B/P (MAP) 124/72 126/66 133/78 Pulse Ox 100 98 96 O2 Delivery Simple Mask Mask Room Air Room Air O2 Flow Rate 8 8 01/04/19 01/04/19 01/04/19 01/04/19 20:50 21:00 21:05 21:10 Temp 98.6 98.6 99.2 98.6 98.6 99.2 Pulse 100 102 108 Resp 20 16 20 B/P (MAP) 142/69 117/66 (83) 120/76 Pulse Ox 96 95 95 O2 Delivery Room Air Room Air Room Air Room Air 01/04/19 01/04/19 01/04/19 01/04/19 21:15 21:31 21:45 21:47 Pulse 98 112 101 B/P (MAP) 124/72 (89) 111/64 (80) 114/62 (79) Pulse Ox 96 90 92 O2 Delivery Room Air 01/04/19 01/04/19 01/04/19 01/04/19 22:00 22:20 22:30 22:47 Pulse 101 100 B/P (MAP) 99/69 (79) 95/63 (74) Pulse Ox 95 95 O2 Delivery Room Air Room Air 01/04/19 01/04/19 01/05/19 01/05/19 22:47 23:00 00:00 01:23 Temp 97.7 97.7 Pulse 62 100 Resp 18 B/P (MAP) 101/65 (77) 97/67 (77) Pulse Ox 99 95 O2 Delivery Room Air Room Air Room Air 01/05/19 01/05/19 01/05/19 01/05/19 01:53 02:43 04:10 07:00 Temp 98.5 98.2 98.5 98.2 Pulse 79 71 Resp 18 16 B/P (MAP) 87/47 (60) 109/53 (71) Pulse Ox 95 100 O2 Delivery Room Air Room Air Room Air Room Air 01/05/19 01/05/19 01/05/19 01/05/19 08:00 08:02 11:00 12:44 Temp 98.2 98.2 Pulse 84 Resp 16 18 16 B/P (MAP) 124/63 (83) Pulse Ox 100 O2 Delivery Room Air Room Air Room Air Room Air 01/05/19 13:50 Resp 16 O2 Delivery Room Air Intake and Output 01/04/19 01/04/19 01/05/19 15:00 23:00 07:00 Intake Total 1000 ml 3025 ml 500 ml Output Total 975 ml 1150 ml Balance 1000 ml 2050 ml -650 ml RUFINO SRIVASTAVA MD Jan 05, 2019 15:49
[2019-01-05] MEDS ORDERED: BISACODYL 10 MG SUPP.RECT. PR PRN (16:00)
[2019-01-05] MEDS: ENOXAPARIN 40 MG/0.4 ML SYRINGE. SQ SCH (17:31)
[2019-01-05] MEDS: traZODone 100 MG TABLET. PO PRN (21:56)
[2019-01-06 03:00] VITALS: BP 87/50
[2019-01-06] MEDS: oxyCODONE/APAP 5/325 1 TAB TABLET PO PRN ×2 (04:23→22:05)
[2019-01-06 07:00] VITALS: BP 88/48
[2019-01-06] MEDS ORDERED: CHOLECALCIFEROL (VITAMIN D3) 5,000 UNIT CAPSULE PO SCH (09:00)
[2019-01-06] MEDS ORDERED: ERGOCALCIFEROL (VITAMIN D2) 50,000 UNIT CAPSULE. PO SCH (09:00)
[2019-01-06] MEDS: MORPHINE SULFATE 4 MG/ML VIAL. IV PRN ×3 (09:14→15:54)
[2019-01-06] MEDS: SENNOSIDES/DOCUSATE 8.6/50MG TABLET. PO SCH ×2 (09:15→21:00)
[2019-01-06] MEDS: NICOTINE 21MG PATCH. TD SCH (09:15)
[2019-01-06] MEDS: ASPIRIN ENTERIC COATED 325 MG TABLET.DR. PO SCH ×2 (09:15→22:05)
[2019-01-06] MEDS: MULTIVITAMIN with MINERAL TABLET. PO SCH (09:16)
[2019-01-06 11:00] VITALS: BP 88/49
[2019-01-06] MEDS: HYDROcodone/APAP 5/325MG 1 TAB TABLET PO PRN ×2 (12:30→18:01)
--- NOTE | 2019-01-06 13:07 | PDOC ---
PROGRESS NOTES Chief Complaint Chief Complaint Right hip fracture - traumatic, ortho surg went well traumatic hip fracture, improving welll tobacco use disorder vit D deficiency History of Present Illness History of Present Illness more soreness today difficulty transferring, try to practice stairs and car no event Vitals Vitals Vital Signs Date Time Temp Pulse Resp B/P (MAP) Pulse Ox O2 Delivery O2 Flow Rate FiO2 01/06/19 12:30 20 Room Air 01/06/19 11:00 89 88/49 (62) 99 01/06/19 07:00 97.5 97.5 Physical Exam General: Alert, Cooperative Heart: Regular rate Abdomen: Soft Extremities: No edema, Normal pulses Skin: No significant lesion, Other (skin intact over the fracture) Assessment and Plan Assessmemt and Plan Problems Medical Problems: (1) Closed right hip fracture Status: Acute Comment Review of Relevant I have reviewed the following items anisha (where applicable) has been applied. Labs Laboratory Tests Test 01/05/19 05:30 White Blood Count 11.5 x10^3/uL (4.0-11.0) Red Blood Count 3.12 x10^6/uL (4.30-5.70) Hemoglobin 10.3 g/dL (13.0-17.5) Hematocrit 30.9 % (39.0-53.0) Mean Corpuscular Volume 99 fL (79-100) Mean Corpuscular Hemoglobin 33 pg (25-35) Mean Corpuscular Hemoglobin Concent 33 g/dL (31-37) Red Cell Distribution Width 13.8 % (11.5-14.5) Platelet Count 270 x10^3/uL (140-400) Neutrophils (%) (Auto) 83 % (31-73) Lymphocytes (%) (Auto) 9 % (24-48) Monocytes (%) (Auto) 8 % (0-9) Eosinophils (%) (Auto) 0 % (0-3) Basophils (%) (Auto) 0 % (0-3) Neutrophils # (Auto) 9.5 x10^3uL (1.8-7.7) Lymphocytes # (Auto) 1.0 x10^3/uL (1.0-4.8) Monocytes # (Auto) 0.9 x10^3/uL (0.0-1.1) Eosinophils # (Auto) 0.0 x10^3/uL (0.0-0.7) Basophils # (Auto) 0.0 x10^3/uL (0.0-0.2) Sodium Level 140 mmol/L (136-145) Potassium Level 4.6 mmol/L (3.5-5.1) Chloride Level 105 mmol/L (98-107) Carbon Dioxide Level 29 mmol/L (21-32) Anion Gap 6 (6-14) Blood Urea Nitrogen 10 mg/dL (8-26) Creatinine 0.9 mg/dL (0.7-1.3) Estimated GFR (Cockcroft-Gault) 87.6 Glucose Level 102 mg/dL (70-99) Calcium Level 8.2 mg/dL (8.5-10.1) 25-Hydroxy Vitamin D Total 20.0 ng/mL (30-100) Medications Current Medications Fentanyl Citrate (Fentanyl 2ml Vial) 75 mcg 1X ONCE IV Last administered on at 11:31; Start 01/03/19 at 11:30; Stop 01/03/19 at 11:31; Status DC Ondansetron HCl (Zofran) 4 mg 1X ONCE IV Last administered on 01/03/19at 11:37 ; Start 01/03/19 at 11:30; Stop 01/03/19 at 11:31; Status DC Fentanyl Citrate (Fentanyl 2ml Vial) 75 mcg 1X ONCE IV Last administered on at 11:45; Start 01/03/19 at 12:00; Stop 01/03/19 at 12:01; Status DC Hydromorphone HCl (Dilaudid) 1 mg 1X ONCE IV Last administered on 01/03/19at 12 :01; Start 01/03/19 at 12:00; Stop 01/03/19 at 12:03; Status DC Fentanyl Citrate (Fentanyl 2ml Vial) 50 mcg 1X ONCE IV Last administered on at 14:26; Start 01/03/19 at 14:00; Stop 01/03/19 at 14:01; Status DC Ondansetron HCl (Zofran) 4 mg PRN Q8HRS PRN IV NAUSEA/VOMITING; Start 01/03/19 at 13:45; Stop 01/03/19 at 15:05; Status DC Fentanyl Citrate (Fentanyl 2ml Vial) 50 mcg PRN Q1HR PRN IV PAIN; Start at 13:45; Stop 01/04/19 at 13:44; Status DC Sodium Chloride 1,000 ml @ 125 mls/hr Q8H IV Last administered on 01/04/19at 01 :47; Start 01/03/19 at 13:39; Stop 01/04/19 at 13:38; Status DC Ringer's Solution 1,000 ml @ 50 mls/hr Q20H IV ; Start 01/03/19 at 14:59; Stop 01/05/19 at 06:22; Status DC Ondansetron HCl (Zofran) 4 mg PRN Q6HRS PRN IV NAUSEA/VOMITING; Start 01/03/19 at 15:00 Hydromorphone HCl (Dilaudid) 0.5 mg PRN Q3HRS PRN IV PAIN, UNREL BY OTHER MEDS ; Start 01/03/19 at 15:00 Hydromorphone HCl (Dilaudid) 1 mg PRN Q3HRS PRN IV PAIN, UNREL BY OTHER MEDS Last administered on 01/04/19at 22:20; Start 01/03/19 at 15:00 Acetaminophen/ Hydrocodone Bitart (Lortab 5/325) 1 tab PRN Q4HRS PRN PO MILD PAIN Last administered on 01/06/19at 12:30; Start 01/03/19 at 15:00 Acetaminophen (Tylenol) 650 mg PRN Q6HRS PRN PO Headaches, Temp > 101.5F; Start 01/03/19 at 15:00 Senna/Docusate Sodium (Senna Plus) 1 tab BID PO Last administered on 01/06/19at 09:15; Start 01/03/19 at 21:00 Magnesium Hydroxide (Milk Of Magnesia) 2,400 mg PRN Q12HR PRN PO CONSTIPATION 2ND CHOICE; Start 01/03/19 at 15:00 Nicotine (Nicoderm Cq 21mg) 1 patch DAILY TD Last administered on 01/06/19at 09: 15; Start 01/03/19 at 15:00 Lidocaine HCl (Glydo (Lidocaine) Jelly) 1 stephen 1X ONCE MM Last administered on 01/03/19at 15:30; Start 01/03/19 at 15:30; Stop 01/03/19 at 15:32; Status DC Ondansetron HCl (Zofran) 4 mg PRN Q6HRS PRN IV NAUSEA/VOMITING; Start 01/04/19 at 07:00; Stop 01/05/19 at 06:59; Status DC Fentanyl Citrate (Fentanyl 2ml Vial) 25 mcg PRN Q5MIN PRN IV MILD PAIN; Start 01/04/19 at 07:00; Stop 01/05/19 at 06:59; Status DC Fentanyl Citrate (Fentanyl 2ml Vial) 50 mcg PRN Q5MIN PRN IV MODERATE TO SEVERE PAIN; Start 01/04/19 at 07:00; Stop 01/05/19 at 06:59; Status DC Morphine Sulfate (Morphine Sulfate) 1 mg PRN Q10MIN PRN IV SEVERE PAIN; Start 01/04/19 at 07:00; Stop 01/05/19 at 06:59; Status DC Ringer's Solution 1,000 ml @ 30 mls/hr Q24H IV ; Start 01/04/19 at 07:00; Stop 01/04/19 at 18:59; Status DC Lidocaine HCl (Xylocaine-Mpf 1% 2ml Vial) 2 ml PRN 1X PRN ID IV START; Start at 07:00; Stop 01/05/19 at 06:59; Status DC Hydromorphone HCl (Dilaudid) 0.5 mg PRN Q10MIN PRN IV SEV PAIN, Second choice; Start 01/04/19 at 07:00; Stop 01/05/19 at 06:59; Status DC Prochlorperazine Edisylate (Compazine) 5 mg PACU PRN PRN IV NAUSEA, MRX1; Start 01/04/19 at 07:00; Stop 01/05/19 at 06:59; Status DC Cefazolin Sodium/ Dextrose 50 ml @ 100 mls/hr 1X PREOP PRN IV SEE COMMENTS Last administered on 01/04/19at 17:30; Start 01/03/19 at 16:00; Stop 01/05/19 at 15:59; Status DC Propofol 0 ml @ As Directed STK-MED ONCE IV ; Start 01/04/19 at 06:56; Stop at 06:57; Status DC Dexamethasone Sodium Phosphate (Decadron) 20 mg STK-MED ONCE .ROUTE ; Start at 06:56; Stop 01/04/19 at 06:57; Status DC Famotidine (Pepcid Vial) 20 mg STK-MED ONCE .ROUTE ; Start 01/04/19 at 06:56; Stop 01/04/19 at 06:57; Status DC Lidocaine HCl (Lidocaine Pf 2% Vial) 5 ml STK-MED ONCE .ROUTE ; Start 01/04/19 at 06:56; Stop 01/04/19 at 06:57; Status DC Ondansetron HCl (Zofran) 4 mg STK-MED ONCE .ROUTE ; Start 01/04/19 at 06:56; Stop 01/04/19 at 06:57; Status DC Rocuronium [place] (Zemuron) 50 mg STK-MED ONCE .ROUTE ; Start 01/04/19 at 06:56 ; Stop 01/04/19 at 06:57; Status DC Fentanyl Citrate (Fentanyl 2ml Vial) 100 mcg STK-MED ONCE .ROUTE ; Start at 06:56; Stop 01/04/19 at 06:57; Status DC Midazolam HCl (Versed) 2 mg STK-MED ONCE .ROUTE ; Start 01/04/19 at 06:56; Stop 01/04/19 at 06:58; Status DC Morphine Sulfate 5 mg/Ketorolac Tromethamine 30 mg/Ropivacaine 60 ml/ Epinephrine HCl 0.5 mg/Sodium Chloride 100 ml @ 100 mls/hr 1X ONCE INT ART ; Start 01/04/19 at 08:00; Stop 01/04/19 at 08:59; Status Cancel Lidocaine HCl (Lidocaine Pf 2% Vial) 5 ml STK-MED ONCE .ROUTE ; Start 01/04/19 at 07:45; Stop 01/04/19 at 07:46; Status DC Morphine Sulfate 5 mg/Ketorolac Tromethamine 30 mg/Ropivacaine 60 ml/ Epinephrine HCl 0.5 mg/Sodium Chloride 100 ml @ 100 mls/hr 1X ONCE INT ART Last administered on 01/04/19at 18:26; Start 01/04/19 at 16:45; Stop 01/04/19 at 17:44; Status DC Propofol 20 ml @ As Directed STK-MED ONCE IV ; Start 01/04/19 at 16:37; Stop at 16:38; Status DC Lidocaine HCl (Lidocaine Pf 2% Vial) 5 ml STK-MED ONCE .ROUTE ; Start 01/04/19 at 16:37; Stop 01/04/19 at 16:38; Status DC Succinylcholine Chloride (Anectine) 200 mg STK-MED ONCE .ROUTE ; Start 01/04/19 at 16:37; Stop 01/04/19 at 16:38; Status DC Rocuronium [place] (Zemuron) 50 mg STK-MED ONCE .ROUTE ; Start 01/04/19 at 16:37 ; Stop 01/04/19 at 16:38; Status DC Fentanyl Citrate (Fentanyl 2ml Vial) 100 mcg STK-MED ONCE .ROUTE ; Start at 16:37; Stop 01/04/19 at 16:38; Status DC Dexamethasone Sodium Phosphate (Decadron) 20 mg STK-MED ONCE .ROUTE ; Start at 17:34; Stop 01/04/19 at 17:35; Status DC Desflurane (Suprane) 60 ml STK-MED ONCE IH ; Start 01/04/19 at 17:34; Stop 01/04 at 17:35; Status DC Glycopyrrolate (Robinul) 1 mg STK-MED ONCE .ROUTE ; Start 01/04/19 at 18:02; Stop 01/04/19 at 18:03; Status DC Cefazolin Sodium/ Dextrose 50 ml @ As Directed STK-MED ONCE IV ; Start 01/04/19 at 19:20; Stop 01/04/19 at 19:21; Status DC Morphine Sulfate (Morphine Sulfate) 2 mg PRN Q1HR PRN IV PAIN; Start 01/04/19 at 20:45 Fentanyl Citrate (Fentanyl 2ml Vial) 25 mcg PRN Q1HR PRN IV PAIN, SEE COMMENTS ; Start 01/04/19 at 20:45 Multivitamins (Thera M Plus) 1 tab DAILY PO Last administered on 01/06/19at 09: 16; Start 01/05/19 at 09:00 Senna/Docusate Sodium (Senna Plus) 1 tab DAILY PO ; Start 01/05/19 at 09:00; Status UNV Polyethylene Glycol (miraLAX PACKET) 17 gm PRN DAILY PRN PO CONSTIPATION 1ST CHOICE; Start 01/04/19 at 20:45 Vitamin D (Vitamin D3) 1,000 unit DAILY PO Last administered on 01/05/19 09:06 ; Start 01/05/19 at 09:00; Stop 01/05/19 at 13:11; Status DC Sodium Chloride 1,000 ml @ 75 mls/hr [id number] IV Last administered on at 21:41; Start 01/04/19 at 21:00; Stop 01/05/19 at 06:22; Status DC Ondansetron HCl (Zofran) 4 mg PRN Q4HRS PRN IV NAUSEA/VOMITING; Start 01/04/19 at 20:45; Status UNV Calcium Carbonate/ Glycine (Tums) 500 mg PRN QID PRN PO INDIGESTION; Start at 20:45 Magnesium Hydroxide (Milk Of Magnesia) 2,400 mg 1X PRN PRN PO CONSTIPATION; Start 01/05/19 at 06:00; Stop 01/06/19 at 05:59; Status DC Bisacodyl (Dulcolax Supp) 10 mg 1X PRN PRN [place] CONSTIPATION; Start 01/05/19 at 16:00; Stop 01/06/19 at 15:59 Morphine Sulfate (Morphine Sulfate) 4 mg PRN Q2HR PRN IV PAIN Last administered on 01/06/19at 12:29; Start 01/04/19 at 20:45 Dextrose (Dextrose 50%-Water Syringe) 12.5 gm PRN Q15MIN PRN IV SEE COMMENTS; Start 01/04/19 at 20:45 Cefazolin Sodium/ Dextrose 50 ml @ 100 mls/hr Q6H IV Last administered on 01/05at 11:04; Start 01/04/19 at 23:30; Stop 01/05/19 at 11:59; Status DC Oxycodone/ Acetaminophen (Percocet 5/325) 1 tab PRN Q4HRS PRN PO MODERATE PAIN Last administered on 01/04/19at 21:47; Start 01/04/19 at 20:45 Aspirin (Ecotrin) 325 mg BID PO Last administered on 01/06/19at 09:15; Start at 21:00 Oxycodone/ Acetaminophen (Percocet 5/325) 2 tab PRN Q4HRS PRN PO SEVERE PAIN Last administered on 01/06/19at 04:23; Start 01/04/19 at 21:00 Enoxaparin Sodium (Lovenox Per Pharmacy Prophylaxis Dosing) 1 each PRN DAILY PRN MC SEE COMMENTS; Start 01/05/19 at 13:15 Ergocalciferol (Vitamin D2) 50,000 unit WEEKLY PO Last administered on at 09:15; Start 01/06/19 at 09:00 Enoxaparin Sodium (Lovenox 40mg Syringe) 40 mg Q24H SQ Last administered on at 17:31; Start 01/05/19 at 18:00 Vitamin D (Vitamin D3) 5,000 unit DAILY PO ; Start 01/06/19 at 09:00; Stop 01/06 at 09:00; Status DC Trazodone HCl (Desyrel) 100 mg PRN QHS PRN PO INSOMNIA Last administered on at 21:56; Start 01/05/19 at 21:30 Vitals/I & O Vital Sign - Last 24 Hours 01/05/19 01/05/19 01/05/19 01/05/19 15:00 16:58 19:00 20:00 Temp 98.3 98.4 98.3 98.4 Pulse 91 86 Resp 18 16 18 B/P (MAP) 117/60 (79) 99/58 (72) Pulse Ox 98 97 O2 Delivery Room Air Room Air Room Air Room Air 01/05/19 01/05/19 01/05/19 01/06/19 21:08 21:50 23:00 03:00 Temp 98.2 98.7 98.2 98.7 Pulse 87 85 75 Resp 16 16 18 18 B/P (MAP) 123/76 (92) 95/54 (68) 87/50 (62) Pulse Ox 99 96 97 O2 Delivery Room Air Room Air Room Air Room Air 01/06/19 01/06/19 01/06/19 01/06/19 04:23 05:30 07:00 07:00 Temp 97.5 97.5 Pulse 79 Resp 16 16 18 B/P (MAP) 88/48 (61) Pulse Ox 97 O2 Delivery Room Air Room Air Room Air 01/06/19 01/06/19 01/06/19 01/06/19 08:00 09:14 09:44 11:00 Pulse 89 Resp 20 20 16 B/P (MAP) 88/49 (62) Pulse Ox 99 O2 Delivery Room Air Room Air Room Air Room Air 01/06/19 01/06/19 12:29 12:30 Resp 20 20 O2 Delivery Room Air Room Air Intake and Output 01/05/19 01/05/19 01/06/19 14:59 22:59 06:59 Intake Total 100 ml Output Total 550 ml Balance -550 ml 100 ml RUFINO SRIVASTAVA MD Jan 06, 2019 13:07
[2019-01-06 15:00] VITALS: BP 103/51
--- NOTE | 2019-01-06 15:33 | PDOC ---
PROGRESS NOTES Subjective Subjective Patient not in room. Apparently doing well. Not able to get bus ride today to [place], but planning to for bus ride tomorrow. Objective Vital Signs Vital Signs Date Time Temp Pulse Resp B/P (MAP) Pulse Ox O2 Delivery O2 Flow Rate FiO2 01/06/19 15:00 98.6 94 16 103/51 (68) 97 Room Air 98.6 01/04/19 20:05 8 Labs Laboratory Tests Test 01/05/19 05:30 White Blood Count 11.5 x10^3/uL (4.0-11.0) Red Blood Count 3.12 x10^6/uL (4.30-5.70) Hemoglobin 10.3 g/dL (13.0-17.5) Hematocrit 30.9 % (39.0-53.0) Mean Corpuscular Volume 99 fL (79-100) Mean Corpuscular Hemoglobin 33 pg (25-35) Mean Corpuscular Hemoglobin Concent 33 g/dL (31-37) Red Cell Distribution Width 13.8 % (11.5-14.5) Platelet Count 270 x10^3/uL (140-400) Neutrophils (%) (Auto) 83 % (31-73) Lymphocytes (%) (Auto) 9 % (24-48) Monocytes (%) (Auto) 8 % (0-9) Eosinophils (%) (Auto) 0 % (0-3) Basophils (%) (Auto) 0 % (0-3) Neutrophils # (Auto) 9.5 x10^3uL (1.8-7.7) Lymphocytes # (Auto) 1.0 x10^3/uL (1.0-4.8) Monocytes # (Auto) 0.9 x10^3/uL (0.0-1.1) Eosinophils # (Auto) 0.0 x10^3/uL (0.0-0.7) Basophils # (Auto) 0.0 x10^3/uL (0.0-0.2) Sodium Level 140 mmol/L (136-145) Potassium Level 4.6 mmol/L (3.5-5.1) Chloride Level 105 mmol/L (98-107) Carbon Dioxide Level 29 mmol/L (21-32) Anion Gap 6 (6-14) Blood Urea Nitrogen 10 mg/dL (8-26) Creatinine 0.9 mg/dL (0.7-1.3) Estimated GFR (Cockcroft-Gault) 87.6 Glucose Level 102 mg/dL (70-99) Calcium Level 8.2 mg/dL (8.5-10.1) 25-Hydroxy Vitamin D Total 20.0 ng/mL (30-100) Assessment Assessment POD 2 after hip ORIF Plan Plan of Care Discharge planning for tomorrow. Continue ASA 325 mg po BID for 30 days for DVT prophylaxis Continue vitamin D supplement daily for low vitamin D ANIL OCONNOR MD Jan 06, 2019 15:33
[2019-01-06] MEDS: ENOXAPARIN 40 MG/0.4 ML SYRINGE. SQ SCH (18:02)
[2019-01-06 19:00] VITALS: BP 87/40
[2019-01-06] MEDS: traZODone 100 MG TABLET. PO PRN (22:05)
[2019-01-06 23:00] VITALS: BP 95/54
[2019-01-07 03:00] VITALS: BP 90/50
[2019-01-07] MEDS: oxyCODONE/APAP 5/325 1 TAB TABLET PO PRN ×5 (03:09→19:59)
[2019-01-07 07:00] VITALS: BP 84/52
[2019-01-07] MEDS: ASPIRIN ENTERIC COATED 325 MG TABLET.DR. PO SCH ×2 (09:29→21:04)
[2019-01-07] MEDS: MULTIVITAMIN with MINERAL TABLET. PO SCH (09:29)
[2019-01-07] MEDS: SENNOSIDES/DOCUSATE 8.6/50MG TABLET. PO SCH ×2 (09:29→21:00)
[2019-01-07] MEDS: NICOTINE 21MG PATCH. TD SCH (09:30)
[2019-01-07] MEDS ORDERED: ASPI325T11 PO (10:20)
[2019-01-07] MEDS ORDERED: ERGO500027 PO (10:20)
[2019-01-07] MEDS ORDERED: POLY17PO28 PO (10:20)
[2019-01-07] MEDS ORDERED: OXYC1TAB15 PO (10:20)
[2019-01-07] MEDS ORDERED: TRAZ-118 PO (10:20)
[2019-01-07] MEDS ORDERED: POLYETHYLENE GLYCOL 3350 17 GM PACKET. PO ONE (10:30)
[2019-01-07 11:00] VITALS: BP 101/56
--- NOTE | 2019-01-07 11:19 | PDOC ---
PROGRESS NOTES Chief Complaint Chief Complaint Right hip fracture - traumatic, ortho surg went well traumatic hip fracture, improving welll tobacco use disorder vit D deficiency History of Present Illness History of Present Illness could not get into car with PT in their lab cont current DC in AM, orders placed, scripts written, he needs to get on a bus at 12:30 back to [place] Vitals Vitals Vital Signs Date Time Temp Pulse Resp B/P (MAP) Pulse Ox O2 Delivery O2 Flow Rate FiO2 01/07/19 11:09 22 Room Air 01/07/19 07:00 97.6 73 84/52 (63) 100 97.6 Physical Exam General: Alert, Cooperative Heart: Regular rate Abdomen: Soft Extremities: No edema, Normal pulses Skin: No significant lesion, Other (skin intact over the fracture) Assessment and Plan Assessmemt and Plan Problems Medical Problems: (1) Closed right hip fracture Status: Acute Comment Review of Relevant I have reviewed the following items anisha (where applicable) has been applied. Medications Current Medications Fentanyl Citrate (Fentanyl 2ml Vial) 75 mcg 1X ONCE IV Last administered on at 11:31; Start 01/03/19 at 11:30; Stop 01/03/19 at 11:31; Status DC Ondansetron HCl (Zofran) 4 mg 1X ONCE IV Last administered on 01/03/19at 11:37 ; Start 01/03/19 at 11:30; Stop 01/03/19 at 11:31; Status DC Fentanyl Citrate (Fentanyl 2ml Vial) 75 mcg 1X ONCE IV Last administered on at 11:45; Start 01/03/19 at 12:00; Stop 01/03/19 at 12:01; Status DC Hydromorphone HCl (Dilaudid) 1 mg 1X ONCE IV Last administered on 01/03/19at 12 :01; Start 01/03/19 at 12:00; Stop 01/03/19 at 12:03; Status DC Fentanyl Citrate (Fentanyl 2ml Vial) 50 mcg 1X ONCE IV Last administered on at 14:26; Start 01/03/19 at 14:00; Stop 01/03/19 at 14:01; Status DC Ondansetron HCl (Zofran) 4 mg PRN Q8HRS PRN IV NAUSEA/VOMITING; Start 01/03/19 at 13:45; Stop 01/03/19 at 15:05; Status DC Fentanyl Citrate (Fentanyl 2ml Vial) 50 mcg PRN Q1HR PRN IV PAIN; Start at 13:45; Stop 01/04/19 at 13:44; Status DC Sodium Chloride 1,000 ml @ 125 mls/hr Q8H IV Last administered on 01/04/19at 01 :47; Start 01/03/19 at 13:39; Stop 01/04/19 at 13:38; Status DC Ringer's Solution 1,000 ml @ 50 mls/hr Q20H IV ; Start 01/03/19 at 14:59; Stop 01/05/19 at 06:22; Status DC Ondansetron HCl (Zofran) 4 mg PRN Q6HRS PRN IV NAUSEA/VOMITING; Start 01/03/19 at 15:00 Hydromorphone HCl (Dilaudid) 0.5 mg PRN Q3HRS PRN IV PAIN, UNREL BY OTHER MEDS ; Start 01/03/19 at 15:00 Hydromorphone HCl (Dilaudid) 1 mg PRN Q3HRS PRN IV PAIN, UNREL BY OTHER MEDS Last administered on 01/04/19at 22:20; Start 01/03/19 at 15:00 Acetaminophen/ Hydrocodone Bitart (Lortab 5/325) 1 tab PRN Q4HRS PRN PO MILD PAIN Last administered on 01/06/19at 18:01; Start 01/03/19 at 15:00 Acetaminophen (Tylenol) 650 mg PRN Q6HRS PRN PO Headaches, Temp > 101.5F; Start 01/03/19 at 15:00 Senna/Docusate Sodium (Senna Plus) 1 tab BID PO Last administered on 01/07/19at 09:29; Start 01/03/19 at 21:00 Magnesium Hydroxide (Milk Of Magnesia) 2,400 mg PRN Q12HR PRN PO CONSTIPATION 2ND CHOICE; Start 01/03/19 at 15:00 Nicotine (Nicoderm Cq 21mg) 1 patch DAILY TD Last administered on 01/07/19at 09: 30; Start 01/03/19 at 15:00 Lidocaine HCl (Glydo (Lidocaine) Jelly) 1 stephen 1X ONCE MM Last administered on 01/03/19at 15:30; Start 01/03/19 at 15:30; Stop 01/03/19 at 15:32; Status DC Ondansetron HCl (Zofran) 4 mg PRN Q6HRS PRN IV NAUSEA/VOMITING; Start 01/04/19 at 07:00; Stop 01/05/19 at 06:59; Status DC Fentanyl Citrate (Fentanyl 2ml Vial) 25 mcg PRN Q5MIN PRN IV MILD PAIN; Start 01/04/19 at 07:00; Stop 01/05/19 at 06:59; Status DC Fentanyl Citrate (Fentanyl 2ml Vial) 50 mcg PRN Q5MIN PRN IV MODERATE TO SEVERE PAIN; Start 01/04/19 at 07:00; Stop 01/05/19 at 06:59; Status DC Morphine Sulfate (Morphine Sulfate) 1 mg PRN Q10MIN PRN IV SEVERE PAIN; Start 01/04/19 at 07:00; Stop 01/05/19 at 06:59; Status DC Ringer's Solution 1,000 ml @ 30 mls/hr Q24H IV ; Start 01/04/19 at 07:00; Stop 01/04/19 at 18:59; Status DC Lidocaine HCl (Xylocaine-Mpf 1% 2ml Vial) 2 ml PRN 1X PRN ID IV START; Start at 07:00; Stop 01/05/19 at 06:59; Status DC Hydromorphone HCl (Dilaudid) 0.5 mg PRN Q10MIN PRN IV SEV PAIN, Second choice; Start 01/04/19 at 07:00; Stop 01/05/19 at 06:59; Status DC Prochlorperazine Edisylate (Compazine) 5 mg PACU PRN PRN IV NAUSEA, MRX1; Start 01/04/19 at 07:00; Stop 01/05/19 at 06:59; Status DC Cefazolin Sodium/ Dextrose 50 ml @ 100 mls/hr 1X PREOP PRN IV SEE COMMENTS Last administered on 01/04/19at 17:30; Start 01/03/19 at 16:00; Stop 01/05/19 at 15:59; Status DC Propofol 0 ml @ As Directed STK-MED ONCE IV ; Start 01/04/19 at 06:56; Stop at 06:57; Status DC Dexamethasone Sodium Phosphate (Decadron) 20 mg STK-MED ONCE .ROUTE ; Start at 06:56; Stop 01/04/19 at 06:57; Status DC Famotidine (Pepcid Vial) 20 mg STK-MED ONCE .ROUTE ; Start 01/04/19 at 06:56; Stop 01/04/19 at 06:57; Status DC Lidocaine HCl (Lidocaine Pf 2% Vial) 5 ml STK-MED ONCE .ROUTE ; Start 01/04/19 at 06:56; Stop 01/04/19 at 06:57; Status DC Ondansetron HCl (Zofran) 4 mg STK-MED ONCE .ROUTE ; Start 01/04/19 at 06:56; Stop 01/04/19 at 06:57; Status DC Rocuronium [place] (Zemuron) 50 mg STK-MED ONCE .ROUTE ; Start 01/04/19 at 06:56 ; Stop 01/04/19 at 06:57; Status DC Fentanyl Citrate (Fentanyl 2ml Vial) 100 mcg STK-MED ONCE .ROUTE ; Start at 06:56; Stop 01/04/19 at 06:57; Status DC Midazolam HCl (Versed) 2 mg STK-MED ONCE .ROUTE ; Start 01/04/19 at 06:56; Stop 01/04/19 at 06:58; Status DC Morphine Sulfate 5 mg/Ketorolac Tromethamine 30 mg/Ropivacaine 60 ml/ Epinephrine HCl 0.5 mg/Sodium Chloride 100 ml @ 100 mls/hr 1X ONCE INT ART ; Start 01/04/19 at 08:00; Stop 01/04/19 at 08:59; Status Cancel Lidocaine HCl (Lidocaine Pf 2% Vial) 5 ml STK-MED ONCE .ROUTE ; Start 01/04/19 at 07:45; Stop 01/04/19 at 07:46; Status DC Morphine Sulfate 5 mg/Ketorolac Tromethamine 30 mg/Ropivacaine 60 ml/ Epinephrine HCl 0.5 mg/Sodium Chloride 100 ml @ 100 mls/hr 1X ONCE INT ART Last administered on 01/04/19at 18:26; Start 01/04/19 at 16:45; Stop 01/04/19 at 17:44; Status DC Propofol 20 ml @ As Directed STK-MED ONCE IV ; Start 01/04/19 at 16:37; Stop at 16:38; Status DC Lidocaine HCl (Lidocaine Pf 2% Vial) 5 ml STK-MED ONCE .ROUTE ; Start 01/04/19 at 16:37; Stop 01/04/19 at 16:38; Status DC Succinylcholine Chloride (Anectine) 200 mg STK-MED ONCE .ROUTE ; Start 01/04/19 at 16:37; Stop 01/04/19 at 16:38; Status DC Rocuronium [place] (Zemuron) 50 mg STK-MED ONCE .ROUTE ; Start 01/04/19 at 16:37 ; Stop 01/04/19 at 16:38; Status DC Fentanyl Citrate (Fentanyl 2ml Vial) 100 mcg STK-MED ONCE .ROUTE ; Start at 16:37; Stop 01/04/19 at 16:38; Status DC Dexamethasone Sodium Phosphate (Decadron) 20 mg STK-MED ONCE .ROUTE ; Start at 17:34; Stop 01/04/19 at 17:35; Status DC Desflurane (Suprane) 60 ml STK-MED ONCE IH ; Start 01/04/19 at 17:34; Stop 01/04 at 17:35; Status DC Glycopyrrolate (Robinul) 1 mg STK-MED ONCE .ROUTE ; Start 01/04/19 at 18:02; Stop 01/04/19 at 18:03; Status DC Cefazolin Sodium/ Dextrose 50 ml @ As Directed STK-MED ONCE IV ; Start 01/04/19 at 19:20; Stop 01/04/19 at 19:21; Status DC Morphine Sulfate (Morphine Sulfate) 2 mg PRN Q1HR PRN IV PAIN; Start 01/04/19 at 20:45 Fentanyl Citrate (Fentanyl 2ml Vial) 25 mcg PRN Q1HR PRN IV PAIN, SEE COMMENTS ; Start 01/04/19 at 20:45 Multivitamins (Thera M Plus) 1 tab DAILY PO Last administered on 01/07/19at 09: 29; Start 01/05/19 at 09:00 Senna/Docusate Sodium (Senna Plus) 1 tab DAILY PO ; Start 01/05/19 at 09:00; Status UNV Polyethylene Glycol (miraLAX PACKET) 17 gm PRN DAILY PRN PO CONSTIPATION 1ST CHOICE; Start 01/04/19 at 20:45 Vitamin D (Vitamin D3) 1,000 unit DAILY PO Last administered on 01/05/19at 09:06 ; Start 01/05/19 at 09:00; Stop 01/05/19 at 13:11; Status DC Sodium Chloride 1,000 ml @ 75 mls/hr [id number] IV Last administered on at 21:41; Start 01/04/19 at 21:00; Stop 01/05/19 at 06:22; Status DC Ondansetron HCl (Zofran) 4 mg PRN Q4HRS PRN IV NAUSEA/VOMITING; Start 01/04/19 at 20:45; Status UNV Calcium Carbonate/ Glycine (Tums) 500 mg PRN QID PRN PO INDIGESTION; Start at 20:45 Magnesium Hydroxide (Milk Of Magnesia) 2,400 mg 1X PRN PRN PO CONSTIPATION; Start 01/05/19 at 06:00; Stop 01/06/19 at 05:59; Status DC Bisacodyl (Dulcolax Supp) 10 mg 1X PRN PRN [place] CONSTIPATION; Start 01/05/19 at 16:00; Stop 01/06/19 at 15:59; Status DC Morphine Sulfate (Morphine Sulfate) 4 mg PRN Q2HR PRN IV PAIN Last administered on 01/06/19at 15:54; Start 01/04/19 at 20:45 Dextrose (Dextrose 50%-Water Syringe) 12.5 gm PRN Q15MIN PRN IV SEE COMMENTS; Start 01/04/19 at 20:45 Cefazolin Sodium/ Dextrose 50 ml @ 100 mls/hr Q6H IV Last administered on 01/05at 11:04; Start 01/04/19 at 23:30; Stop 01/05/19 at 11:59; Status DC Oxycodone/ Acetaminophen (Percocet 5/325) 1 tab PRN Q4HRS PRN PO MODERATE PAIN Last administered on 01/04/19at 21:47; Start 01/04/19 at 20:45 Aspirin (Ecotrin) 325 mg BID PO Last administered on 01/07/19at 09:29; Start at 21:00 Oxycodone/ Acetaminophen (Percocet 5/325) 2 tab PRN Q4HRS PRN PO SEVERE PAIN Last administered on 01/07/19 11:09; Start 01/04/19 at 21:00 Enoxaparin Sodium (Lovenox Per Pharmacy Prophylaxis Dosing) 1 each PRN DAILY PRN MC SEE COMMENTS; Start 01/05/19 at 13:15 Ergocalciferol (Vitamin D2) 50,000 unit WEEKLY PO Last administered on at 09:15; Start 01/06/19 at 09:00 Enoxaparin Sodium (Lovenox 40mg Syringe) 40 mg Q24H SQ Last administered on at 18:02; Start 01/05/19 at 18:00 Vitamin D (Vitamin D3) 5,000 unit DAILY PO ; Start 01/06/19 at 09:00; Stop 01/06 at 09:00; Status DC Trazodone HCl (Desyrel) 100 mg PRN QHS PRN PO INSOMNIA Last administered on at 22:05; Start 01/05/19 at 21:30 Polyethylene Glycol (miraLAX PACKET) 17 gm 1X ONCE PO Last administered on at 11:09; Start 01/07/19 at 10:30; Stop 01/07/19 at 10:35; Status DC Active Scripts Active Percocet 5-325 Mg Tablet (Oxycodone/Acetaminophen) 1 Each Tablet 1 Tab PO PRN Q4HRS PRN Polyethylene Glycol 3350 17 Gm Powd.pack 17 Gm PO PRN DAILY PRN Vitamin D2 (Ergocalciferol (Vitamin D2)) 50,000 Unit Capsule 50,000 Unit PO WEEKLY Trazodone Hcl 50 Mg Tablet 1 Tab PO QHS Aspirin Ec (Aspirin) 325 Mg Tablet. 325 Mg PO BID Vitals/I & O Vital Sign - Last 24 Hours 01/06/19 01/06/19 01/06/19 01/06/19 12:29 12:30 15:00 15:54 Temp 98.6 98.6 Pulse 94 Resp 20 20 16 20 B/P (MAP) 103/51 (68) Pulse Ox 97 O2 Delivery Room Air Room Air Room Air Room Air 01/06/19 01/06/19 01/06/19 01/06/19 16:24 18:01 19:00 19:09 Temp 98.6 98.6 Pulse 86 Resp 20 20 18 20 B/P (MAP) 87/40 (56) Pulse Ox 97 O2 Delivery Room Air Room Air Room Air Room Air 01/06/19 01/06/19 01/06/19 01/07/19 19:30 22:05 23:00 03:00 Temp 98.2 97.9 98.2 97.9 Pulse 80 75 Resp 16 18 18 B/P (MAP) 95/54 (68) 90/50 (63) Pulse Ox 97 97 O2 Delivery Room Air Room Air Room Air Room Air 01/07/19 01/07/19 01/07/19 01/07/19 03:09 07:00 07:10 08:00 Temp 97.6 97.6 Pulse 73 Resp 16 18 16 B/P (MAP) 84/52 (63) Pulse Ox 100 O2 Delivery Room Air Room Air Room Air Room Air 01/07/19 01/07/19 08:10 11:09 Resp 20 22 O2 Delivery Room Air Room Air Intake and Output 01/06/19 01/06/19 01/07/19 14:59 22:59 06:59 Intake Total 250 ml 700 ml 200 ml Output Total 550 ml Balance -300 ml 700 ml 200 ml RUFINO SRIVASTAVA MD Jan 07, 2019 11:19
--- NOTE | 2019-01-07 13:48 | PDOC ---
PROGRESS NOTES Subjective Subjective gradual improvement. Not able to get bus ride today, has ticket for 1pm tomorrow and needs to leave early AM to get his belongings at the truck station Objective Vital Signs Vital Signs Date Time Temp Pulse Resp B/P (MAP) Pulse Ox O2 Delivery O2 Flow Rate FiO2 01/07/19 11:09 22 Room Air 01/07/19 11:00 97.5 82 101/56 (71) 100 97.5 01/04/19 20:05 8 Physical Exam New dressing is dry intact. Moderate ecchymosis (expected) No compartment syndrome. Length and alignment appear normal. Calf soft. Good dorsiflexion and plantarflexion and sensation toes and ankle right Assessment Assessment Postoperative day 3 after right hip subtrochanteric fracture intramedullary nailing with cerclage Plan Plan of Care Discharge early a.m. tomorrow. I wrote a Percocet prescription. Use aspirin 325 mg daily. He wants to follow-up here in [place] with me, and comes here frequently anyway. I recommended follow-up either January 18 or January 15 in my office. He agrees with the plan ANIL OCONNOR MD Jan 07, 2019 13:48
[2019-01-07 15:00] VITALS: BP 94/58
[2019-01-07] MEDS: ENOXAPARIN 40 MG/0.4 ML SYRINGE. SQ SCH (18:43)
[2019-01-07 19:00] VITALS: BP 105/60
[2019-01-07] MEDS: traZODone 100 MG TABLET. PO PRN (21:04)
[2019-01-07 23:00] VITALS: BP 98/56
[2019-01-08 03:00] VITALS: BP 97/56
[2019-01-08] MEDS: oxyCODONE/APAP 5/325 1 TAB TABLET PO PRN ×2 (05:56)
--- NOTE | 2019-01-08 07:32 | NUR ---
Discharge Note: ANJALI EVANS [address] [place] [address] Discharge instructions and discharge home medications reviewed with patient and a copy given. All questions have been answered and understanding verbalized. The following instructions and handouts were given: Hip rehabilitation guidelines and incisional care. Discontinued lines and drains: 20 gauge IV removed, skin intact and bandage applied. Patient discharged to home with self care and taxi cab called for transport.
[2019-01-08] MEDS: ASPIRIN ENTERIC COATED 325 MG TABLET.DR. PO SCH (09:20)
--- NOTE | 2019-01-08 09:29 | NUR ---
5 attempts made to [facility] since approx 629. [facility] stated they had independent contractors and did not know when or if anyone would be available to take pt to destination. Transportation set with [facility] van, pt notified. Stated he would have to arrange his own transportation. 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
--- NOTE | 2019-01-08 09:59 | NUR ---
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
--- NOTE | 2019-01-08 18:05 | PDOC3 ---
Discharge Summary Visit Information Date of Admission: Jan 03, 2019 Date of Discharge: Jan 08, 2019 Admitting Diagnosis: fall, hip pain Final Diagnosis Right hip fracture - traumatic, ortho surg went well traumatic hip fracture, improving welll tobacco use disorder vit D deficiency Vitals Problems Medical Problems: (1) Closed right hip fracture Status: Acute Brief Hospital Course Allergies Allergies Coded Allergies Type Severity Reaction Last Updated Verified No Known Drug Allergies 01/03/19 No Vital Signs Vital Signs Date Time Temp Pulse Resp B/P (MAP) Pulse Ox O2 Delivery O2 Flow Rate FiO2 01/08/19 07:00 16 Room Air 01/08/19 03:00 97.8 78 97/56 (70) 98 97.8 Brief Hospital Course Mr. 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 slipped on ice, severe pain, could not move, could not be moved my helpful passerby. EMS called, broken hip [facility]. Kerr [facility] subtro[facility]teric femoral fracture with intramedullary implant, with interlocking screws and cerclage, CPT 18645 on 01/04 Eliceo had trouble with mobility before DC, will take a bus back to [place] on dc, may not drive OTR for 1 month Discharge Information Condition at Discharge: Improved Follow Up: Weeks Disposition/Orders: D/C to Home Scheduled Aspirin (Aspirin Ec) 325 Mg Tablet.dr 325 MG PO BID for prevent clot, #60 Prescribed by: RUFINO SRIVASTAVA on 01/07/19 1020 Ergocalciferol (Vitamin D2) (Vitamin D2) 50,000 Unit Capsule, 50,000 UNIT PO WEEKLY for vitamin deficiency, #7 Prescribed by: RUFINO SRIVASTAVA on 01/07/19 1020 Trazodone Hcl (Trazodone Hcl) 50 Mg Tablet, 1 TAB PO QHS for sleep, #90 Ref 1 Prescribed by: RUFINO SRIVASTAVA on 01/07/19 1020 Scheduled PRN Oxycodone/Apap 5-325 (Percocet 5-325 Mg Tablet ) 1 Each Tablet, 1 TAB PO PRN Q4HRS PRN for MODERATE PAIN, #25 Prescribed by: RUFINO SRIVASTAVA on 01/07/19 1020 Polyethylene Glycol 3350 (Polyethylene Glycol 3350) 17 Gm Powd.pack, 17 GM PO PRN DAILY PRN for CONSTIPATION 1ST CHOICE, #30 Prescribed by: RUFINO SRIVASTAVA on 01/07/19 1020 Patient Instructions Patient Instructions > 30 min face to face, billed on 01/07 RUFINO SRIVASTAVA MD Jan 08, 2019 18:05
== END 2019-01-08 09:52 | disposition home or self-care (01) | DRG 481 ==
LOC: ER 11:20 → 4 NORTH 14:04
PROVIDERS: ADMIT Internal Medicine; ATTEND Internal Medicine
PROC: 0QS606Z Reposition Right Upper Femur with Intramedullary Internal Fixation Device, Open Approach (ICD-10-PCS; principal; 2019-01-04 17:00)
DX: S72.21XA Displaced subtrochanteric fracture of right femur, initial encounter for closed fracture (principal); F17.213 Nicotine dependence, cigarettes, with withdrawal; E55.9 Vitamin D deficiency, unspecified; W00.0XXA Fall on same level due to ice and snow, initial encounter; Y93.89 Activity, other specified; Y92.89 Other specified places as the place of occurrence of the external cause; Y99.8 Other external cause status; Z80.9 Family history of malignant neoplasm, unspecified
CPT/HCPCS: 36415; 73552; 76000; 80048; 80053; 82306; 85025; 86850; 86900; 86901; 87641; 93005; 96374; 96375; 96376; A7015; C1713; C1887; J0171; J0330; J0696; J1100; J1170; J1650; J1885; J2001; J2250; J2270; J2405; J2704; J2795; J3010; J3490; J7030; J7120; 97110; 97116; 97530; 97535; 99285-25